=== PATIENT | male | born 1940 | race Caucasian/White ===

== ENCOUNTER 2020-02-24 05:49 | Outpatient (REF) | payer MEDICARE, SELFPAY | END 2020-02-24 05:50 | disposition home or self-care (01) | LOC: HO.RADIR 05:49 | PROVIDERS: Visit Provider Anesthesiology | DX: Z13.89 Encounter for screening for other disorder (principal) ==

== ENCOUNTER 2020-03-10 13:03 | Outpatient (REF) | payer MEDICARE, SELFPAY ==
--- NOTE | 2020-03-10 13:05 | XR_ITS ---
EXAMINATION: XR SHOULDER, LEFT CLINICAL INFORMATION: Follow-up fracture COMPARISON: Previous x-ray 02/02/2020 TECHNIQUE: Two views of the left shoulder. FINDINGS: There is a comminuted impacted fracture of the left humeral neck. Alignment appears unchanged. Fracture line is still seen. The glenohumeral joint is normal. There is mild arthritis at the acromioclavicular joint. XR/XR shoulder LT min 2V IMPRESSION: No change in the left humeral neck fracture.
== END 2020-03-10 13:04 | disposition home or self-care (01) ==
LOC: HO.HOSX 13:03
PROVIDERS: PCP Internal Medicine Endocrinology, Diabetes & Metabolism; Visit Provider Orthopaedic Surgery
DX: S42.209A Unspecified fracture of upper end of unspecified humerus, initial encounter for closed fracture (principal)
CPT/HCPCS: 73030

== ENCOUNTER → 2020-03-18 08:55 | Outpatient (BNVA) | payer MEDICARE, SELFPAY | PROVIDERS: PCP Internal Medicine Endocrinology, Diabetes & Metabolism; Referring Provider Internal Medicine Endocrinology, Diabetes & Metabolism; Visit Provider Orthopaedic Surgery | DX: S42.202D Unspecified fracture of upper end of left humerus, subsequent encounter for fracture with routine healing (principal) | CPT/HCPCS: 99212 ==

== ENCOUNTER → 2020-05-24 08:31 | Outpatient (BNVA) | payer MEDICARE, SELFPAY | PROVIDERS: PCP Internal Medicine Endocrinology, Diabetes & Metabolism; Visit Provider Orthopaedic Surgery | DX: S42.202A Unspecified fracture of upper end of left humerus, initial encounter for closed fracture (principal) | CPT/HCPCS: 99212 ==

== ENCOUNTER → 2021-02-17 13:23 | Outpatient (BNVA) | payer MEDICARE, OTHER, SELFPAY | PROVIDERS: Visit Provider Physician Assistant | DX: M70.62 Trochanteric bursitis, left hip (principal) | CPT/HCPCS: 20610; 99212; J1040 ==

== ENCOUNTER 2022-12-21 13:26 | Outpatient (AMB) | payer MEDICARE, MEDICAID, SELFPAY ==
--- NOTE | 2022-12-21 13:29 | A.OFFVIS_ITS ---
Intake Intake Visit Reasons: OV-Left Hip Pain Intake Note: Lonnie is an 82 year old male who presents today for a follow up of his left hip. He last had a bursa injection done on 02/17/2021 with Monalisa. He reports that the injection was helpful but he reports that his pain has increased. Allergies No Known Allergies [No Known Allergies*] Allergy (Verified 12/21/22 13:41) HPI OV-Left Hip Pain HPI Details Lonnie Morales is an 82-year-old male who presents today to the office for a follow-up of left hip pain. His last bursa injection was performed on 02/17/21, which provided significant relief. He has had trochanteric injections in the past from Dr. Oneil. He had a revision left hip arthroplasty with Dr. Oneil several years ago. He states that his hip pain increased recently after working out at home. He has been performing home exercises to keep himself physically active. His sister and grandmother both had a history of Alzheimer?s disease. [facility] Medical History History of colon cancer Mononeuropathy Post laminectomy syndrome Proximal humerus fracture Trochanteric bursitis Surgical History History of hernia surgery History of left hip replacement Social History Alcohol intake: current Alcohol intake frequency: holidays/special occasions only Current occupational status: retired Current occupation: right handed Physical Exam Const General: no acute distress, alert and awake Orientation/consciousness: patient oriented x3 HEENT Head: Yes normocephalic and Yes atraumatic Eyes EOM: EOMs intact bilaterally Resp Effort & Inspection: normal respiratory effort and able to speak in complete sentences Cardio Jugular venous distension: no JVD Skin General skin exam: turgor normal Rashes: no rashes Neuro General: patient oriented x3 Extrem Other: ttp over the greater trochanter on the right. no groin pain. walking comfortably Psych Appearance: grossly normal Affect: normal affect Attitude: cooperative Office Procedures Joint Injection/Drain Joint Injection/Drain Details: Injected 1 mL of Decadron and 3 mL 1% lidocaine and 3 mL of 0.25% Marcaine. Site was prepped using aseptic technique. Patient tolerated the procedure well. Primary Site: other (left greater trochanter) Approach Used: posterolateral Procedure: The patient tolerated the procedure well Coding - Large joint Procedure code (CPT) selection complete Results Reviewed Results Reviewed: 12/21/22 13:47 BUPivacaine MPF 0.25 % [Sensorcaine-MPF 0.25% 10 ML] 10 ml .ROUTE .STK-MED ONE Lidocaine HCl 2 % MPF [Xylocaine 2 % MPF] 5 ml .ROUTE .STK-MED ONE dexAMETHasone sod phosphate [Decadron] 4 mg .ROUTE .STK-MED ONE Assessment & Plan Assessment & Plan (1) Trochanteric bursitis, left hip: Code(s): M70.62 - Trochanteric bursitis, left hip Plan: S/p revision left hip arthroplasty for instability. Primary performed elsewhere. Has been well with chronic mild-moderate trochanteric bursitis. I injected his left bursa today. H may follow up as needed. Plan Scribed for Dr. Henrry Oneil by Mello Fulton, medical laboratory technicians, on 12/21/2022. I, Dr. Henrry Oneil, have personally reviewed and agree with the information entered by the scribe. Coding Level of Care Code Est Pt Level 3 (93023) Diagnoses Trochanteric bursitis, left hip M70.62 CPT Codes Coding - Large joint: 37879 - Large joint ([id number])
== END 2022-12-21 14:00 | disposition home or self-care (01) ==
PROVIDERS: Visit Provider Orthopaedic Surgery
DX: M70.62 Trochanteric bursitis, left hip (principal)
CPT/HCPCS: 20610; 99213

== ENCOUNTER → 2022-12-21 13:26 | Outpatient (BNVA) | payer MEDICARE, OTHER, SELFPAY | PROVIDERS: Visit Provider Orthopaedic Surgery | DX: M70.62 Trochanteric bursitis, left hip (principal) | CPT/HCPCS: 20610; 99212; J1100 ==

== ENCOUNTER 2023-02-19 13:02 | Outpatient (AMB) | payer MEDICARE, MEDICAID, SELFPAY ==
--- NOTE | 2023-03-05 11:18 | MHC.OFFVIS ---
Intake Vital Signs 03/05/23 11:20 Height 6 ft 1 in Weight 260 lb BMI 34.3 Intake Visit Reasons: EP, F/U Trochan bursitis, left hip inj 12/21/22 Intake Note: Lonnie is an 83 year old male who presents today for a follow up of his left hip pain, last injection was done 12/21/22. Patient reports that the lsat injection was only mildly helpful. He explains that he thinks that his lower back is causing his pain. He has history of lumber spine surgery. Allergies No Known Allergies [No Known Allergies*] Allergy (Verified 12/21/22 13:41) HPI EP, F/U Trochan bursitis, left hip inj 12/21/22 HPI Details Lonnie is an 83 year old man who returns with complaints of lower back pain He complains of pain primarily in his lower back, along with a painful lump that he feels in his back. He denies any groin pain but does have some lateral hip pain He says he has a hx of lumbar spine surgery in the past. He has been seen for trochanteric bursitis, and has a rTHA. [facility] Medical History History of colon cancer Mononeuropathy Post laminectomy syndrome Proximal humerus fracture Trochanteric bursitis Surgical History History of hernia surgery History of left hip replacement Social History Alcohol intake: current Alcohol intake frequency: holidays/special occasions only Current occupational status: retired Current occupation: right handed Review of Systems Const All systems reviewed & are unremarkable except as noted in HPI and below Physical Exam Vital Signs: BMI result Body Mass Index 34.3 Const General: no acute distress, alert and awake Orientation/consciousness: patient oriented x3 HEENT Head: Yes normocephalic and Yes atraumatic Eyes EOM: EOMs intact bilaterally Resp Effort & Inspection: normal respiratory effort and able to speak in complete sentences Cardio Jugular venous distension: no JVD Skin General skin exam: turgor normal Rashes: no rashes Neuro General: patient oriented x3 Extrem Other: TTP left greater trochanter No groin pain with hip ROM TTP lumosacral region Psych Appearance: grossly normal Affect: normal affect Attitude: cooperative Office Procedures Joint Injection/Drain Joint Injection/Drain Details: Injected 1 mL of Decadron and 3 mL 1% lidocaine and 3 mL of 0.25% Marcaine. Site was prepped using aseptic technique. Patient tolerated the procedure well. Primary Site: other (left greater trochanter) Approach Used: posterolateral Coding - Large joint Procedure code (CPT) selection complete Results Reviewed Results Reviewed: 03/05/23 11:30 BUPivacaine MPF 0.25 % [Sensorcaine-MPF 0.25% 10 ML] 10 ml .ROUTE .STK-MED ONE Lidocaine HCl 2 % MPF [Xylocaine 2 % MPF] 5 ml .ROUTE .STK-MED ONE dexAMETHasone sod phosphate [Decadron] 4 mg .ROUTE .STK-MED ONE Assessment & Plan Assessment & Plan (1) Low back pain: Code(s): M54.50 - Low back pain, unspecified Plan: This is an 83 year old man with low back pain, without numbness. He has pain with daily activity and feels limited in is ADLs. He has a hx of lumbar spine surgery several years ago. I discussed his diagnosis and treatment options. I referred him to Pain Management for assessment. He can follow up prn. (2) Trochanteric bursitis, left hip: Code(s): M70.62 - Trochanteric bursitis, left hip Plan: Injected his left trochanteric bursa today, which he tolerated well. Plan Scribed for Henrry Oneil MD by Dangelo Pandya, medical practice manager, on 03/05/23 at 11:35 AM, EST. Coding Level of Care Code Est Pt Level 4 (11812) Diagnoses Low back pain M54.50 Trochanteric bursitis, left hip M70.62 CPT Codes Coding - Large joint: 43976 - Large joint ([id number])
[2023-03-05 11:20] VITALS: BMI 34.3
== END 2023-03-05 11:50 | disposition home or self-care (01) ==
PROVIDERS: Visit Provider Orthopaedic Surgery
DX: M54.50 Low back pain, unspecified (principal); M70.62 Trochanteric bursitis, left hip
CPT/HCPCS: 20610; 99213

== ENCOUNTER → 2023-02-19 13:02 | Outpatient (BNVA) | payer MEDICARE, MEDICAID, SELFPAY | PROVIDERS: Visit Provider Orthopaedic Surgery | DX: M70.62 Trochanteric bursitis, left hip (principal); M54.50 Low back pain, unspecified | CPT/HCPCS: 20610; 99212; J1100 ==

== ENCOUNTER 2023-03-26 09:46 | Outpatient (AMB) | payer MEDICARE, MEDICAID, SELFPAY ==
[2023-03-26 09:49] VITALS: PULSE 72; RESP 12; O2SAT 99; BMI 33.0
--- NOTE | 2023-03-26 09:49 | MHC.OFFVIS ---
Intake Vital Signs 03/26/23 09:49 Height 6 ft 1 in Weight 250 lb BMI 33.0 Blood Pressure Location Lt brachial Position Sitting Respiration 12 Pulse 72 Pulse Source Pulse Oximeter Pulse Oximetry (%) 99 Oxygen Delivery Method Room Air Intake Visit Reasons: low back pain/trochanteric pain/lvm Allergies No Known Allergies [No Known Allergies*] Allergy (Verified 03/26/23 09:51) Medication List - Last Reconciled 03/26/23 by Batsheva Walls LPN furosemide 40 mg PO DAILY lorazepam 1 mg PO DAILY PRN spironolactone 50 mg PO DAILY HPI low back pain/trochanteric pain/lvm HPI Details 83-year-old male who presents today to the office for an evaluation of low back pain. The patient reports low back pain that has been worsening since last month. He rates his pain at 8?10 in intensity. He describes his pain as a shooting pain in the back. He uses a walker for ambulation. He has difficulty sleeping. He has tried physical therapy for a short period of time. He had a left hip arthroplasty several years ago. He had several bursa injections and trochanteric injections in the past with minimal to moderate benefit. He has a history of lumbar spine surgery in the past. He has a history of gout. [facility] Medical History (Updated 03/26/23 @ 10:10 by Maksim Del Rio MD) Congestive heart failure History of colon cancer Post laminectomy syndrome Mononeuropathy Trochanteric bursitis Proximal humerus fracture Surgical History History of left hip replacement History of hernia surgery Alcohol intake: current Alcohol intake frequency: holidays/special occasions only Current occupational status: retired Current occupation: right handed Review of Systems Const All systems reviewed & are unremarkable except as noted in HPI and below Physical Exam Vital Signs: Last Vital Signs Pulse 72 03/26/23 09:49 Resp 12 03/26/23 09:49 Pulse Ox 99 03/26/23 09:49 Oxygen Delivery Method Room Air 03/26/23 09:49 BMI result Body Mass Index 33.0 General: Appears afebrile. Alert and oriented. Mood and affect appropriate. Follows and participates in conversation appropriately. Respiratory effort is unlabored. Able to transition from sit to stand unassisted. Ambulates with bilaterally normal heel strike and toe off. Results Reviewed Results Reviewed: No imaging is available for review. Assessment & Plan Assessment & Plan (1) Low back pain: Code(s): M54.50 - Low back pain, unspecified (2) Right shoulder pain: Code(s): M25.511 - Pain in right shoulder (3) Post laminectomy syndrome: Code(s): M96.1 - Postlaminectomy syndrome, not elsewhere classified Plan 1. X-ray of the lumbar spine to assess status of hardware and rule out any obvious bony abnormalities. Depending on the results of the x-ray, can consider facet injections or neuromodulation. Pain on exam appears likely secondary to sacroiliac joint dysfunction on the left side. He is unable to participate in sacroiliac joint pain provocative maneuvers due to pain and disability. 2. Will obtain clearance to get his right shoulder x-ray results from [facility]. If his x-ray is indeed unremarkable, I agree with proceeding with physical therapy to regain lost function in the right shoulder and prevent developing adhesive capsulitis. 3. Recommended calling the primary care physician regarding the swelling in his lower extremities, especially on the left side to rule out ongoing thrombosis or cellulitis in combination with exacerbation of underlying heart failure. Scribed for Dr. Del Rio by Mello Fulton, medical affairs specialist, on 03/26/2023. I, Dr. Del Rio, have personally reviewed and agree with the information entered by the scribe. Orders: Orders XR lumbar spine 2-3V 03/26/23 M25.511 - Pain in right shoulder, M54.50 - Low back pain, unspecified, M96.1 - Postlaminectomy syndrome, not elsewhere classified Coding Level of Care Code New Pt Level 4 (93178) Diagnoses Low back pain M54.50 Right shoulder pain M25.511 Post laminectomy syndrome M96.1
== END 2023-03-26 11:21 | disposition home or self-care (01) ==
PROVIDERS: Referring Provider Orthopaedic Surgery; Visit Provider Internal Medicine
DX: M54.50 Low back pain, unspecified (principal); M25.511 Pain in right shoulder; M96.1 Postlaminectomy syndrome, not elsewhere classified
CPT/HCPCS: 99203

== ENCOUNTER → 2023-03-26 09:46 | Outpatient (BNVA) | payer MEDICARE, MEDICAID, SELFPAY | PROVIDERS: Referring Provider Orthopaedic Surgery; Visit Provider Internal Medicine | DX: M54.50 Low back pain, unspecified (principal); M25.511 Pain in right shoulder; M96.1 Postlaminectomy syndrome, not elsewhere classified; Z96.642 Presence of left artificial hip joint | CPT/HCPCS: 99202 ==

== ENCOUNTER 2023-04-05 09:44 | Outpatient (REF) | payer MEDICARE, MEDICAID, SELFPAY ==
--- NOTE | ~2023-04-05 | XR_ITS ---
EXAMINATION: XR LUMBOSACRAL SPINE CLINICAL INFORMATION: Lower back pain. COMPARISON: None. TECHNIQUE: AP and lateral views of the lumbar spine and lateral view of the lumbosacral junction. FINDINGS: There is bony demineralization. There is a mild lower lumbar levoscoliosis. There appear to have been prior spinal laminectomies at L3 and L4. Please correlate with the patient's past surgical history. There is moderate disc space narrowing at L1-L2. The remaining disc spaces are relatively well-maintained. No acute fracture or spondylolisthesis is seen. There is multi-level marked lumbar spondylosis and facet arthropathy. There has been a prior left hip arthroplasty. XR/XR lumbar spine 2-3V IMPRESSION: 1. There is moderate degenerative disc disease at L1-L2. 2. There is multi-level lumbar spondylosis and facet arthropathy. 3. There is a mild lower lumbar levoscoliosis.
== END 2023-04-05 09:45 | disposition home or self-care (01) ==
LOC: HO.XRAY 09:44
PROVIDERS: PCP Internal Medicine Endocrinology, Diabetes & Metabolism; Visit Provider Internal Medicine
DX: M54.50 Low back pain, unspecified (principal); M96.1 Postlaminectomy syndrome, not elsewhere classified
CPT/HCPCS: 72100

== ENCOUNTER → 2023-04-06 08:15 | Outpatient (BNVA) | payer MEDICARE, MEDICAID, SELFPAY | PROVIDERS: PCP Internal Medicine Endocrinology, Diabetes & Metabolism; Visit Provider Internal Medicine ==

== ENCOUNTER 2023-05-14 08:48 | Outpatient (AMB) | payer MEDICARE, MEDICAID, SELFPAY ==
--- NOTE | 2023-05-14 07:34 | MHC.OFFVIS ---
Intake Intake Visit Reasons: ov-left hip bursa injections Intake Note: Lonnie is an 83 year old right hand dominant male who presents today for a new problem visit with complaints of right shoulder pain. He took a fall about 3-4 weeks ago landing on the right shoulder. His pain is worse in the morning, denies numbness and tinlging. Allergies No Known Allergies [No Known Allergies*] Allergy (Verified 05/14/23 08:52) HPI ov-left hip bursa injections HPI Details Lonnie is an 83 year old man who presents with complaints of right shoulder pain S/P fall ~4 weeks ago. He says he landed on his right shoulder and he has had pain with use of his arm since. His pain is worse in the mornings. He is doing PT. He is able to sleep but uncomfortable at times, madelyn in the AM. He denies any numbness or tingling. [facility] Medical History Congestive heart failure History of colon cancer Post laminectomy syndrome Mononeuropathy Trochanteric bursitis Proximal humerus fracture Surgical History History of left hip replacement History of hernia surgery Social History Alcohol intake: current Alcohol intake frequency: holidays/special occasions only Current occupational status: retired Current occupation: right handed Review of Systems Const All systems reviewed & are unremarkable except as noted in HPI and below Physical Exam Const General: no acute distress, alert and awake Orientation/consciousness: patient oriented x3 HEENT Head: Yes normocephalic and Yes atraumatic Eyes EOM: EOMs intact bilaterally Resp Effort & Inspection: normal respiratory effort and able to speak in complete sentences Cardio Jugular venous distension: no JVD Skin General skin exam: turgor normal Rashes: no rashes Neuro General: patient oriented x3 Extrem Other: 45/80/120/L5 4-/5 empty can Psych Appearance: grossly normal Affect: normal affect Attitude: cooperative Office Procedures Joint Injection/Drain Joint Injection/Drain Details: Injected 1 mL of Decadron and 3 mL 1% lidocaine and 3 mL of 0.25% Marcaine. Site was prepped using aseptic technique. Patient tolerated the procedure well. Primary Site: right shoulder Approach Used: posterolateral Coding - Large joint Procedure code (CPT) selection complete Results Reviewed Results Reviewed: I personally reviewed relevant radiographs. Mild GH OA, otherwise unremarkable Assessment & Plan Assessment & Plan (1) Right shoulder pain: Code(s): M25.511 - Pain in right shoulder Plan: Injected right shoulder Likely RTC deficient Cont PT Injected right shoulder Plan Scribed for Henrry Oneil MD by Dangelo Pandya, medical secretary teacher, on 05/14/23 at 8:56 AM, EST. Orders: Orders XR shoulder RT min 2V Today M25.519 - Pain in unspecified shoulder Coding Level of Care Code Est Pt Level 3 (90372) Diagnoses Right shoulder pain M25.511 CPT Codes Coding - Large joint: 94974 - Large joint ([id number])
== END 2023-05-14 09:57 | disposition home or self-care (01) ==
PROVIDERS: PCP Internal Medicine Endocrinology, Diabetes & Metabolism; Visit Provider Orthopaedic Surgery
DX: M25.511 Pain in right shoulder (principal); W19.XXXA Unspecified fall, initial encounter
CPT/HCPCS: 20610; 99213

== ENCOUNTER 2023-05-14 08:48 | Outpatient (REF) | payer MEDICARE, MEDICAID, SELFPAY ==
--- NOTE | ~2023-05-14 | XR_ITS ---
EXAMINATION: XR SHOULDER, RIGHT CLINICAL INFORMATION: Right shoulder pain. COMPARISON: 02/06/2019. TECHNIQUE: Three views of the right shoulder. FINDINGS: The bones are diffusely demineralized. Mild degenerative changes in the acromioclavicular joint with joint space narrowing and hypertrophic change. Redemonstration of proximal right humeral cortical thickening. Dextroscoliosis of the partially imaged thoracic spine with degenerative changes. XR/XR shoulder RT min 2V IMPRESSION: 1. Mild degenerative changes in the acromioclavicular joint. 2. Redemonstration of proximal right humeral cortical thickening. Dextroscoliosis of the partially imaged thoracic spine with degenerative changes.
== END 2023-05-14 08:49 | disposition home or self-care (01) ==
LOC: HO.HOSX 08:48
PROVIDERS: PCP Internal Medicine Endocrinology, Diabetes & Metabolism; Visit Provider Orthopaedic Surgery
DX: M25.511 Pain in right shoulder (principal); Z91.81 History of falling
CPT/HCPCS: 20610; 73030; 99212; J0665; J1100

== ENCOUNTER 2023-12-13 10:43 | Outpatient (AMB) | payer MEDICARE, MEDICAID, SELFPAY ==
--- NOTE | 2023-12-13 10:45 | MHC.OFFVIS ---
Vital Signs 12/13/23 10:47 Height 6 ft 1 in Weight 250 lb BMI 33.0 Intake Visit Reasons: OV- LT hip pain Intake Note: Lonnie is an 83 year old male who presents today for a follow up of his left hip bursitis, last injection for bursitis was done in February of last year . Allergies No Known Allergies [No Known Allergies*] Allergy (Verified 05/14/23 08:52) HPI HPI OV- LT hip pain: Details: Lonnie is an 83 year old male who presents today for a follow up of his left hip bursitis, last injection for bursitis was done in February of last year . Is bilateral lateral hip pain is improved but he has lots of low back pain. He denies radiations. He is pretty adamant that he does not want to see a spine surgeon. He does not think he needs repeat injections in his greater trochanter. [facility] Medical History Congestive heart failure History of colon cancer Post laminectomy syndrome Mononeuropathy Trochanteric bursitis Proximal humerus fracture Surgical History History of left hip replacement History of hernia surgery Social History (Reviewed 05/14/23 @ 08:52 by Heather Stanton [facility]) Alcohol intake: current Alcohol intake frequency: holidays/special occasions only Current occupational status: retired Current occupation: right handed Physical Exam Vital Signs: BMI result Body Mass Index 33.0 Extrem Other: Lonnie walks with a cane. He has minimal to no tenderness to palpation over the greater trochanter bilaterally. Assessment & Plan Assessment & Plan (1) Sacroiliac joint dysfunction: Code(s): M53.3 - Sacrococcygeal disorders, not elsewhere classified Category: Medical Plan: Pain management referral (2) Low back pain: Code(s): M54.50 - Low back pain, unspecified Category: Medical Plan: PT referral Coding Level of Care Code Est Pt Level 4 (01320) Diagnoses Sacroiliac joint dysfunction M53.3 Low back pain M54.50
[2023-12-13 10:47] VITALS: BMI 33.0
== END 2023-12-13 11:06 | disposition home or self-care (01) ==
PROVIDERS: PCP Internal Medicine Endocrinology, Diabetes & Metabolism; Visit Provider Orthopaedic Surgery
DX: M53.3 Sacrococcygeal disorders, not elsewhere classified (principal); M54.50 Low back pain, unspecified
CPT/HCPCS: 99214

== ENCOUNTER → 2023-12-13 10:43 | Outpatient (BNVA) | payer MEDICARE, MEDICAID, SELFPAY | PROVIDERS: PCP Internal Medicine Endocrinology, Diabetes & Metabolism; Visit Provider Orthopaedic Surgery | DX: M54.50 Low back pain, unspecified (principal); M53.3 Sacrococcygeal disorders, not elsewhere classified | CPT/HCPCS: 99212 ==

== ENCOUNTER 2024-02-26 08:56 | Outpatient (AMB) | payer MEDICARE, MEDICAID, SELFPAY ==
--- NOTE | 2024-02-26 09:03 | A.OFFVIS_ITS ---
Vital Signs 02/26/24 09:08 Height 6 ft 1 in Weight 250 lb BMI 33.0 Intake Visit Reasons: FC-right distal radius, ulnar styloid fx Intake Note: Lonnie is an 84 yo right hand dominant male who presents today to evaluate a fracture of the right distal radius and right ulnar styloid, DOI 02/24/24. He was evaluated at [facility], only imaging available for today's visit. Patient reports he was going up the stairs at home when he fell, landing on the right side of his body. Patient describes pain as 5 on the pain scale, but it worsens at night. He was prescribed Oxycodone 5mg at the ED but he does not want to take it. Patient denies numbness and tingling. Denies finger locking. Patient reports normal sensitivity at the fingertips. Denies any prior injuries or surgeries to the right hand. Allergies No Known Allergies [No Known Allergies*] Allergy (Verified 02/26/24 09:17) HPI HPI FC-right distal radius, ulnar styloid fx: Details: Lonnie is an 84 year old right hand dominant man who presents for a right wrist fracture, S/P fall, DOI: 02/23/24. He was seen at [facility] ED and was placed in a sugar-tong splint. He is seen today was . He presents today with complaints of pain in his wrist, which is worse at night, along with swelling. He says he has been wearing a sling and trying to keep his wrist elevated when at rest. He also is concerned that he has some bleeding, swelling, and blistering that was visible today when his dressings were removed. He denies having any wound or infection prior to his injury. He denies any numbness, tingling, locking, or catching. He has a Hx of CHF and is taking Lasix & Spironolactone [facility] Medical History (Updated 02/26/24 @ 09:52 by Dangelo Pandya) Congestive heart failure History of colon cancer Post laminectomy syndrome Mononeuropathy Trochanteric bursitis Proximal humerus fracture Surgical History History of left hip replacement History of hernia surgery Social History Alcohol intake: current Alcohol intake frequency: holidays/special occasions only Current occupational status: retired Current occupation: right handed Review of Systems Const All systems reviewed & are unremarkable except as noted in HPI and below Physical Exam Vital Signs: BMI result Body Mass Index 33.0 Const General: cooperative, healthy appearing and no acute distress Orientation/consciousness: patient oriented x3 HEENT Head: Yes normocephalic and Yes atraumatic Eyes EOM: EOMs intact bilaterally Resp Effort & Inspection: normal respiratory effort and able to speak in complete sentences Cardio Jugular venous distension: no JVD Skin General skin exam: turgor normal Rashes: no rashes Neuro General: patient oriented x3 Extrem Other: Evaluation of Right Upper Extremity: The patient is alert, oriented, and in no acute distress Sensation intact today to all digits. He has significant swelling of his right hand and all of the fingers, and very limited finger ROM due to swelling Because of the swelling he also has limited range of motion with only weak flexion and extension of the fingers. Skin: Cluster of fracture blisters on volar distal forearm Small superficial wound to the volar aspect of the mid-forearm These appear to be fracture blisters, not an open fracture. Patient and also report that they were not present when he was 1st seen in the ED after his injury. General: Most tender over the Distal radius No tenderness about the elbow or with proximal forearm squeeze No tenderness over the distal ulna Radiographs: 3 views of the right wrist were taken and viewed by me today in clinic. They show a right comminuted distal radius fracture, intra-articular with a large radial styloid piece & lunar facet piece. The lunate facet fragment appears slightly depressed. There is also an ulnar styloid and nondisplaced ulnar head fracture. Psych Appearance: grossly normal Affect: normal affect Attitude: cooperative Assessment & Plan Assessment & Plan (1) Fracture of right distal radius: Code(s): S52.501A - Unspecified fracture of the lower end of right radius, initial encounter for closed fracture Category: Medical (2) Fracture of right ulnar styloid: Code(s): S52.611A - Displaced fracture of right ulna styloid process, initial encounter for closed fracture Category: Medical (3) Swelling of right hand: Code(s): M79.89 - Other specified soft tissue disorders Category: Medical (4) Congestive heart failure: Code(s): I50.9 - Heart failure, unspecified Category: Medical Plan Assessment & Plan: 1. Right distal radius fracture, comminuted & intra-articular S/P fall, DOI: 02/23/24 2. Right ulnar styloid fracture, S/P fall, DOI: 02/23/24 3. Right wrist fracture blisters, secondary to swelling I educated him about these conditions I discussed operative and non-operative treatment options Because of the amount of swelling I do not feel that surgery is an option at this time. We will try to manage this non-operatively, however I explained that if his fracture moves at all he will need surgery, and he expressed understanding. He was placed on a 10 day course of Augmentin out of an abundance of caution bec ause of his fracture blisters.. I explained the importance of elevation at all times possible, to reduce his swelling and improve his blistering. We cleaned up his fracture blisters and placed a fresh dressing. He was then placed in a fiberglass volar wrist splint extending to the proximal forearm. I discussed activity modification, he is to lift nothing with his right hand He should work on gentle finger ROM exercises at home He was placed in a short volar wrist splint, which allows for elbow and finger ROM He will follow up on Sunday with LUCINDA Escobar for a wound check, no X-rays He will follow up next week with me, with X-rays, 3V attn R wrist. Depending on imaging he may require surgery on 03/06/24. Options to be considered at that time would be ORIF versus external fixator versus treating the fracture non operatively this 84-year-old man. Scribed for Cheryl Cagle MD by Dangelo Pandya, biomedical photographer, on 02/26/24 at 9:25 AM, EST. Orders: Orders XR wrist RT min 3V Today M25.531 - Pain in right wrist Medications: New amoxicillin-pot clavulanate 875-125 mg 1 tab PO Q12H 14 tabs 0RF Coding Level of Care Code New Pt Level 4 (22036) Diagnoses Fracture of right distal radius S52.501A Fracture of right ulnar styloid S52.611A Swelling of right hand M79.89 Congestive heart failure I50.9
[2024-02-26 09:08] VITALS: BMI 33.0
== END 2024-02-26 10:27 | disposition home or self-care (01) ==
PROVIDERS: PCP Internal Medicine Endocrinology, Diabetes & Metabolism; Visit Provider Orthopaedic Surgery
DX: S52.501A Unspecified fracture of the lower end of right radius, initial encounter for closed fracture (principal); S52.611A Displaced fracture of right ulna styloid process, initial encounter for closed fracture; M79.89 Other specified soft tissue disorders; I50.9 Heart failure, unspecified
CPT/HCPCS: 25600; 99204

== ENCOUNTER 2024-02-26 08:56 | Outpatient (REF) | payer MEDICARE, MEDICAID, SELFPAY | END 2024-02-26 08:57 | disposition home or self-care (01) | LOC: HO.HOSX 08:56 | PROVIDERS: PCP Internal Medicine Endocrinology, Diabetes & Metabolism; Visit Provider Orthopaedic Surgery | DX: S52.501A Unspecified fracture of the lower end of right radius, initial encounter for closed fracture (principal); S52.611A Displaced fracture of right ulna styloid process, initial encounter for closed fracture; M79.89 Other specified soft tissue disorders; I50.9 Heart failure, unspecified; W10.9XXA Fall (on) (from) unspecified stairs and steps, initial encounter; Y93.9 Activity, unspecified; Y92.9 Unspecified place or not applicable; Y99.9 Unspecified external cause status | CPT/HCPCS: 73110; 99202 ==

== ENCOUNTER 2024-02-29 08:41 | Outpatient (AMB) | payer MEDICARE, MEDICAID, SELFPAY ==
--- NOTE | 2024-02-29 08:46 | A.OFFVIS_ITS ---
Intake Visit Reasons: OV-RT distal radius, ulnar styloid fx-wound check Intake Note: Lonnie is a 84 year old male that presents in the office today for a wound check. Patient is taking antibiotics, he has been experiencing some numbness in his fingers but he is able to move them now. Allergies No Known Allergies [No Known Allergies*] Allergy (Verified 02/29/24 08:47) HPI HPI OV-RT distal radius, ulnar styloid fx-wound check: Details: Patient is an 84-year-old male who presents for wound check of fracture blister status post fracture of right distal radius and ulnar styloid. Today, the patient reports that his pain and swelling have improved since previous evaluation, although he has noticed increased soreness since removal from the splint in the office today. The patient states that he has improved motion of the digits of his right hand, but his right hand is still very significantly swollen, and he still reports numbness in the right hand. Patient states that he has been elevating his hand fairly consistently, but struggles to do so at night while sleeping. No other acute complaints or concerns at this time. [facility] Medical History (Updated 02/26/24 @ 09:52 by Dangelo Pandya) Congestive heart failure History of colon cancer Post laminectomy syndrome Mononeuropathy Trochanteric bursitis Proximal humerus fracture Surgical History History of left hip replacement History of hernia surgery Social History Alcohol intake: current Alcohol intake frequency: holidays/special occasions only Current occupational status: retired Current occupation: right handed Review of Systems Const All systems reviewed & are unremarkable except as noted in HPI and below Physical Exam Const General: cooperative, healthy appearing and no acute distress Orientation/consciousness: patient oriented x3 HEENT Head: Yes normocephalic and Yes atraumatic Eyes EOM: EOMs intact bilaterally Resp Effort & Inspection: normal respiratory effort and able to speak in complete sentences Cardio Jugular venous distension: no JVD Skin General skin exam: turgor normal Rashes: no rashes Neuro General: patient oriented x3 Extrem Other: Evaluation of Right Upper Extremity: The patient is alert, oriented, and in no acute distress Sensation intact today to all digits. He has significant swelling of his right hand and all of the fingers, and limited finger ROM due to swelling, but this has improved since last visit Because of the swelling he also has limited range of motion with only weak flexion and extension of the fingers. Skin: Cluster of fracture blisters on volar distal forearm, with some having ruptured since last visit Small superficial wound to the volar aspect of the mid-forearm These appear to be fracture blisters, not an open fracture. Patient and also report that they were not present when he was 1st seen in the ED after his injury. General: Most tender over the Distal radius No tenderness about the elbow or with proximal forearm squeeze No tenderness over the distal ulna Radiographs: 3 views of the right wrist were taken and viewed by me today in clinic. They show a right comminuted distal radius fracture, intra-articular with a large radial styloid piece & lunar facet piece. The lunate facet fragment appears slightly depressed. There is also an ulnar styloid and nondisplaced ulnar head fracture. Psych Appearance: grossly normal Affect: normal affect Attitude: cooperative Assessment & Plan Assessment & Plan (1) Swelling of right hand: Code(s): M79.89 - Other specified soft tissue disorders Category: Medical (2) Fracture of right distal radius: Code(s): S52.501A - Unspecified fracture of the lower end of right radius, initial encounter for closed fracture Category: Medical (3) Fracture of right ulnar styloid: Code(s): S52.611A - Displaced fracture of right ulna styloid process, initial encounter for closed fracture Category: Medical Plan 1. Right distal radius fracture 2. Right ulnar styloid fracture Date of injury 02/23/24 Patient is educated that while his swelling and range of motion have improved since last visit, he should continue to elevate very consistently, including at night, in order to get his swelling down enough to the point where surgery would become an option next week. Patient has splint is replaced in the office today, with a small nonstick dressing applied to the area where the fracture blisters have ruptured Patient is advised that he should continue to take his antibiotics to prevent any potential infection Patient is educated he should continue to work on range of motion of his fingers Patient will be evaluated by Dr. Cagle next Sunday for repeat evaluation and discussion of potential surgical intervention if indicated at that time, sooner with any acute concerns Patient understands this and is amenable to this Coding Level of Care Code Est Pt Level 3 (64786) Diagnoses Swelling of right hand M79.89 Fracture of right distal radius S52.501A Fracture of right ulnar styloid S52.611A
== END 2024-02-29 09:40 | disposition home or self-care (01) ==
PROVIDERS: PCP Internal Medicine Endocrinology, Diabetes & Metabolism
DX: S52.501A Unspecified fracture of the lower end of right radius, initial encounter for closed fracture (principal); S52.611A Displaced fracture of right ulna styloid process, initial encounter for closed fracture; M79.89 Other specified soft tissue disorders
CPT/HCPCS: 99213

== ENCOUNTER → 2024-02-29 08:41 | Outpatient (BNVA) | payer MEDICARE, MEDICAID, SELFPAY | PROVIDERS: PCP Internal Medicine Endocrinology, Diabetes & Metabolism | DX: S52.501A Unspecified fracture of the lower end of right radius, initial encounter for closed fracture (principal); S52.611A Displaced fracture of right ulna styloid process, initial encounter for closed fracture; X58.XXXA Exposure to other specified factors, initial encounter; Y93.9 Activity, unspecified; Y92.9 Unspecified place or not applicable; Y99.9 Unspecified external cause status; M79.89 Other specified soft tissue disorders | CPT/HCPCS: 99212 ==

== ENCOUNTER 2024-03-04 15:29 | Outpatient (AMB) | payer MEDICARE, MEDICAID, SELFPAY ==
--- NOTE | 2024-03-04 15:42 | MHC.OFFVIS ---
Vital Signs 03/04/24 15:49 Height 6 ft 1 in Weight 250 lb BMI 33.0 Intake Visit Reasons: OV-right distal radius, ulnar styloid-w/xray 3V Intake Note: Lonnie is an 84 yo right hand dominant male who presents today a follow up evaluation of a fracture of the right distal radius and right ulnar styloid, DOI 02/24/24. Patient reports he coontinues to take his abx. Allergies No Known Allergies [No Known Allergies*] Allergy (Verified 02/29/24 08:47) HPI HPI OV-right distal radius, ulnar styloid-w/xray 3V: Details: Lonnie is an 84 year old right hand dominant man who returns for his right distal radius & ulnar styloid fractures, S/P fall, DOI: 02/23/24. He is seen again today with his . He presents today with complaints of pain in his wrist, which is worse at night, but he says his pain has been improving. He says his swelling has improved with elevation, which he is happy about. He was last seen 1 week ago and noted to have significant swelling and fracture blisters on the volar aspect of his wrist. He denies any numbness, tingling He has a Hx of CHF and is taking Lasix & Spironolactone [facility] Medical History (Updated 02/26/24 @ 09:52 by Dangelo Pandya) Congestive heart failure History of colon cancer Post laminectomy syndrome Mononeuropathy Trochanteric bursitis Proximal humerus fracture Surgical History History of left hip replacement History of hernia surgery Social History Alcohol intake: current Alcohol intake frequency: holidays/special occasions only Current occupational status: retired Current occupation: right handed Physical Exam Vital Signs: BMI result Body Mass Index 33.0 Extrem Other: Evaluation of Right Upper Extremity: The patient is alert, oriented, and in no acute distress Neuro: Sensation intact today to all digits. ROM: Skin: He still has significant swelling of his hand & wrist Cluster of fracture blisters on volar distal forearm, these appear to be healing Small superficial wound to the volar aspect of the mid-forearm also healing These appear to be fracture blisters, not an open fracture. No evidence of infection The swelling is really from his elbow extending down all the way to the fingers. It is somewhat better than last week, but he still has significant swelling in the fingers, and stiffness from not moving them. We worked on active and passive ROM exercises for more than 15 minutes today in clinic Before leaving clinic he could actively bring his fingers into not quite full extension, but much better than before clinic. Before leaving clinic he could also bring his fingers actively into some flexion, with his fingertips perhaps 3-4 cm from his palm, which again is an improvement compared with before clinic. I explained to him that I think he should be doing these exercises for 5-10 minutes every hour while awake and whenever commercials come on TV. General: Most tender over the Distal radius No tenderness about the elbow or with proximal forearm squeeze No tenderness over the distal ulna Radiographs: 3 views of the right wrist were taken and viewed by me today in clinic. They show a right comminuted distal radius fracture, intra-articular with a large radial styloid piece & lunar facet piece. The lunate facet fragment appears slightly depressed. There is also an ulnar styloid and nondisplaced ulnar head fracture. He is at neutral on the lateral view, and overall unchanged from prior. Office Procedures AMB Fracture Care Details: Fracture care right distal radius fracture 20059 Manual therapy for more than 15 minutes in clinic 73089 Fracture Billing Code: Fracture Billing Code Assessment & Plan Assessment & Plan (1) Fracture of right distal radius: Code(s): S52.501A - Unspecified fracture of the lower end of right radius, initial encounter for closed fracture Category: Medical (2) Fracture of right ulnar styloid: Code(s): S52.611A - Displaced fracture of right ulna styloid process, initial encounter for closed fracture Category: Medical (3) Swelling of right hand: Code(s): M79.89 - Other specified soft tissue disorders Category: Medical (4) Congestive heart failure: Code(s): I50.9 - Heart failure, unspecified Category: Medical Plan Assessment & Plan: 1. Right distal radius fracture, comminuted & intra-articular S/P fall, DOI: 02/23/24 2. Right ulnar styloid fracture, S/P fall, DOI: 02/23/24 3. Right wrist volar fracture blisters, secondary to swelling These are drying up, and he has had some improvement in his swelling. I believe his congestive heart failure is likely also making it harder for him to improve his swelling. I talked to him again about the improvement of keeping the hand elevated, and the importance of active and passive finger range of motion to help improve his swelling. Again we worked on active and passive range of motion exercises for more than 15 minutes today in clinic. Please see physical exam for improvement in range of motion. I educated him about these conditions I discussed operative and non-operative treatment options He is 84, with some congestive heart failure and significant swelling including fracture blisters about the right wrist. I am recommending that we treat this non operatively. His swelling has improved some overall, which he is happy about, but he still has significant swelling particularly in the fingers. He was fitted for a fiberglass volar wrist splint which allows for finger ROM, to be worn like a cast except for showering, for the next 4 weeks. We had tried a Velcro wrist splint, but he was still too swollen to place it. I also think the swelling is going to make a cast more problematic. He should have finished his PO Augmentin I explained the importance of elevation at all times possible, to reduce his swelling and improve his blistering. I discussed activity modification, he is to lift nothing with his right hand He should work on gentle finger ROM exercises at home for at least 5-10 minutes every hour while awake I ordered OT hand therapy to work on finger ROM, no wrist range of motion yet. He will follow up in 3 weeks for a fracture and ROM check, with X-rays, 3V attn R wrist. Scribed for Cheryl Cagle MD by Dangelo Pandya, certified medical asst, on 03/04/24 at 4:00 PM, EST. Orders: Orders XR wrist RT min 3V Today M25.531 - Pain in right wrist OT Evaluation and Treatment Today I50.9 - Heart failure, unspecified, M79.89 - Other specified soft tissue disorders, S52.501A - Unspecified fracture of the lower end of right radius, initial encounter for closed fracture, S52.611A - Displaced fracture of right ulna styloid process, initial encounter for closed fracture Coding Level of Care Code Est Pt Level 4 (00879) Diagnoses Fracture of right distal radius S52.501A Fracture of right ulnar styloid S52.611A Swelling of right hand M79.89 Congestive heart failure I50.9 CPT Codes Fracture Care - Fracture Billing Code: Fracture Billing Code ([id number])
[2024-03-04 15:49] VITALS: BMI 33.0
== END 2024-03-04 18:11 | disposition home or self-care (01) ==
LOC: HO.HOS 15:30
PROVIDERS: PCP Internal Medicine Endocrinology, Diabetes & Metabolism; Visit Provider Orthopaedic Surgery
DX: S52.501A Unspecified fracture of the lower end of right radius, initial encounter for closed fracture (principal); S52.611A Displaced fracture of right ulna styloid process, initial encounter for closed fracture; M79.89 Other specified soft tissue disorders; I50.9 Heart failure, unspecified
CPT/HCPCS: 29125; 99024; 99214

== ENCOUNTER 2024-03-04 15:43 | Outpatient (REF) | payer MEDICARE, MEDICAID, SELFPAY | END 2024-03-04 15:44 | disposition home or self-care (01) | LOC: HO.HOSX 15:43 | PROVIDERS: Visit Provider Orthopaedic Surgery | DX: M25.531 Pain in right wrist (principal); S52.501A Unspecified fracture of the lower end of right radius, initial encounter for closed fracture; S52.611A Displaced fracture of right ulna styloid process, initial encounter for closed fracture; M79.89 Other specified soft tissue disorders; I50.9 Heart failure, unspecified | CPT/HCPCS: 73110; 97140; 99212 ==

== ENCOUNTER 2024-03-06 14:19 | Outpatient (AMB) | payer MEDICARE, MEDICAID, SELFPAY ==
--- NOTE | 2024-03-06 14:45 | MHC.OFFVIS ---
Intake Visit Reasons: RT distal radius, ulnar styloid fx-splint change Intake Note: Patient presents to the office today for splint change. Reports the splint feels uncomfortable. A thermal molded vs. velcro wrist splint was discussed at the last visit. Allergies No Known Allergies [No Known Allergies*] Allergy (Verified 02/29/24 08:47) HPI HPI RT distal radius, ulnar styloid fx-splint change: Details: 84-year-old right hand dominant male who presents in the office today for a follow-up evaluation of a fracture of the right distal radius and right ulnar styloid that occurred on 02/24/2024. The patient was seen by Cheryl Cagle PA-C on 03/04/[address] in a Velcro wrist splint but failed to due to edema in his right wrist. Therefore, he was fitted in a fiberglass volar wrist splint allowing for finger ROM, and a referral was placed for OT hand therapy. He was advised to finish the Augmentin course. Activity modification and weight restriction were discussed at that encounter. While in the office today, the patient presents today for a splint change. He reports discomfort in the splint. We had discussed a thermal molded versus a velcro wrist splint in the last visit. He has a significant medical history of congestive heart failure. [facility] Medical History (Updated 02/26/24 @ 09:52 by Dangelo Pandya) Congestive heart failure History of colon cancer Post laminectomy syndrome Mononeuropathy Trochanteric bursitis Proximal humerus fracture Surgical History (Reviewed 05/14/23 @ 08:52 by Heather Stanton [facility] [address]) History of left hip replacement History of hernia surgery Social History Alcohol intake: current Alcohol intake frequency: holidays/special occasions only Current occupational status: retired Current occupation: right handed Review of Systems Const All systems reviewed & are unremarkable except as noted in HPI and below Physical Exam Const General: cooperative, healthy appearing and no acute distress Resp Effort & Inspection: normal respiratory effort and able to speak in complete sentences Cardio Rate: regular rate Peripheral pulses: Peripheral pulses 2+ throughout GI Palpation (GI): Soft to palpation Skin Lesions: no lesions Rashes: no rashes Extrem Other: Significant swelling of his hand & wrist Cluster of fracture blisters on volar distal forearm, these appear to be healing Small superficial wound to the volar aspect of the mid-forearm also healing These appear to be fracture blisters, not an open fracture. No evidence of infection Assessment & Plan Assessment & Plan (1) Fracture of right distal radius: Code(s): S52.501A - Unspecified fracture of the lower end of right radius, initial encounter for closed fracture Category: Medical (2) Fracture of right ulnar styloid: Code(s): S52.611A - Displaced fracture of right ulna styloid process, initial encounter for closed fracture Category: Medical (3) Swelling of right hand: Code(s): M79.89 - Other specified soft tissue disorders Category: Medical (4) Congestive heart failure: Code(s): I50.9 - Heart failure, unspecified Category: Medical Plan Mr. Morales is a 84-year-old right hand dominant male who presents in the office today for a follow-up evaluation of a fracture of the right distal radius and right ulnar styloid that occurred on 02/24/2024. The patient was seen by Cheryl Cagle PA-C on 03/04/[address] to [address] in a Velcro wrist splint but failed to due to edema in his right wrist. Therefore, he was fitted in a fiberglass volar wrist splint allowing for finger ROM, and a referral was placed for OT hand therapy. He was advised to finish the Augmentin course. Activity modification and weight restriction were discussed at that encounter. While in the office today, the patient presents today for a splint change. He reports discomfort in the splint. We had discussed a thermal molded versus a velcro wrist splint in the last visit. He has a significant medical history of congestive heart failure. The patient was placed in a thermal molded wrist brace, off the shelf. Follow-up will be at his normally scheduled follow-up appointment, or sooner if needed. Patient Instructions: Scribed by Nayeli Bronson, bacteriologist medical, for Stephenie Mcmahan PA-C on 03/06/24 at 3:00 pm EST. Coding Level of Care Code Global (32341) Diagnoses Fracture of right distal radius S52.501A Fracture of right ulnar styloid S52.611A Swelling of right hand M79.89 Congestive heart failure I50.9
== END 2024-03-06 15:01 | disposition home or self-care (01) ==
LOC: HO.HOS 14:19
PROVIDERS: PCP Internal Medicine Endocrinology, Diabetes & Metabolism; Visit Provider Physician Assistant
DX: S52.501A Unspecified fracture of the lower end of right radius, initial encounter for closed fracture (principal); S52.611A Displaced fracture of right ulna styloid process, initial encounter for closed fracture; M79.89 Other specified soft tissue disorders; I50.9 Heart failure, unspecified
CPT/HCPCS: 25600; 99024

== ENCOUNTER → 2024-03-06 14:19 | Outpatient (BNVA) | payer MEDICARE, MEDICAID, SELFPAY | PROVIDERS: PCP Internal Medicine Endocrinology, Diabetes & Metabolism; Visit Provider Physician Assistant | DX: S52.501D Unspecified fracture of the lower end of right radius, subsequent encounter for closed fracture with routine healing (principal); S52.611D Displaced fracture of right ulna styloid process, subsequent encounter for closed fracture with routine healing; M79.89 Other specified soft tissue disorders; I50.9 Heart failure, unspecified | CPT/HCPCS: 25600; 99212 ==

== ENCOUNTER 2024-03-25 10:42 | Outpatient (REF) | payer MEDICARE, MEDICAID, SELFPAY | END 2024-03-25 10:43 | disposition home or self-care (01) | LOC: HO.HOSX 10:42 | PROVIDERS: Visit Provider Orthopaedic Surgery | DX: M25.531 Pain in right wrist (principal); S52.501A Unspecified fracture of the lower end of right radius, initial encounter for closed fracture; S52.611A Displaced fracture of right ulna styloid process, initial encounter for closed fracture; M79.89 Other specified soft tissue disorders; I50.9 Heart failure, unspecified | CPT/HCPCS: 73110; 99212 ==

== ENCOUNTER 2024-03-25 11:25 | Outpatient (AMB) | payer MEDICARE, MEDICAID, SELFPAY ==
[2024-03-25 11:38] VITALS: BMI 33.0
--- NOTE | 2024-03-25 11:38 | A.OFFVIS_ITS ---
Vital Signs 03/25/24 11:38 Height 6 ft 1 in Weight 250 lb BMI 33.0 Intake Visit Reasons: OV-RT distal radius, ulnar styloid fx wound check Intake Note: Lonnie is an 84 yo right hand dominant male who presents today a follow up evaluation of a fracture of the right distal radius and right ulnar styloid, DOI 02/24/24. Allergies No Known Allergies [No Known Allergies*] Allergy (Verified 03/25/24 11:38) HPI HPI OV-RT distal radius, ulnar styloid fx wound check: Details: Lonnie is an 84 year old right hand dominant man who returns for his right distal radius & ulnar styloid fractures, S/P fall, DOI: 02/23/24. He is seen again today with his . He was seen in the office on 03/06/24 by LUCINDA Casiano for a splint change. He returns today saying he is doing better and his swelling has been improving, which he is happy about. He has been working on his ROM at home and has started OT hand therapy, which he says is helpful. He denies any numbness or tingling He has a Hx of CHF and is taking Lasix & Spironolactone [facility] Medical History (Updated 02/26/24 @ 09:52 by Dangelo Pandya) Congestive heart failure History of colon cancer Post laminectomy syndrome Mononeuropathy Trochanteric bursitis Proximal humerus fracture Surgical History (Reviewed 05/14/23 @ 08:52 by Heather Stanton [facility]) History of left hip replacement History of hernia surgery Social History (Reviewed 05/14/23 @ 08:52 by Heather Stanton [facility]) Alcohol intake: current Alcohol intake frequency: holidays/special occasions only Current occupational status: retired Current occupation: right handed Physical Exam Vital Signs: BMI result Body Mass Index 33.0 Extrem Other: Evaluation of Right Upper Extremity: The patient is alert, oriented, and in no acute distress Neuro: Sensation intact today to all digits. ROM: He still has significant swelling in his fingers. Before leaving clinic he could bring his fingertips ~4-5cm from his palm and his fingers can be brought ~8-10cm from his palm in extension Skin: His wrist swelling has improved His fracture blisters have healed. General: Fracture site is non-tender No tenderness over the distal ulna Radiographs: 3 views of the right wrist were taken and viewed by me today in clinic. They show a right comminuted distal radius fracture, intra-articular with a large radial styloid piece & lunar facet piece. The lunate facet fragment appears slightly depressed. There is also an ulnar styloid and nondisplaced ulnar head fracture. He has ~3 degrees of dorsal tilt on the lateral view, with overall satisfactory fracture alignment with some evidence of interval bony healing Assessment & Plan Assessment & Plan (1) Fracture of right distal radius: Code(s): S52.501A - Unspecified fracture of the lower end of right radius, initial encounter for closed fracture Category: Medical (2) Fracture of right ulnar styloid: Code(s): S52.611A - Displaced fracture of right ulna styloid process, initial encounter for closed fracture Category: Medical (3) Swelling of right hand: Code(s): M79.89 - Other specified soft tissue disorders Category: Medical (4) Congestive heart failure: Code(s): I50.9 - Heart failure, unspecified Category: Medical Plan Assessment & Plan: 1. Right distal radius fracture, comminuted & intra-articular S/P fall, DOI: 02/23/24 2. Right ulnar styloid fracture, S/P fall, DOI: 02/23/24 3. Right wrist volar fracture blisters, secondary to swelling These are drying up, and he has had good improvement in his swelling. I believe his congestive heart failure is likely also making it harder for him to improve his swelling. I talked to him again about the improvement of keeping the hand elevated, and the importance of active and passive finger range of motion to help improve his swelling. I educated him about these conditions We have managed this fracture non operatively in a cast. His swelling has improved overall, which he is happy about, but is still present He was placed in a velcro wrist splint which allows for finger ROM, to be worn like a cast except for showering, for the next 4 weeks. I discussed activity modification, he is to lift nothing heavier than a cellphone for the next 4 weeks I emphasized the importance of working on ROM exercises at home, out of his splint He will continue to work on ROM with OT hand therapy He will follow up in 4-5 weeks for a ROM check, no X-rays unless he has a new injury Scribed for Cheryl Cagle MD by Dangelo Pandya, medical billing coordinator, on 03/25/24 at 11:55 AM, EST. Orders: Orders XR wrist RT min 3V Today M25.531 - Pain in right wrist Coding Level of Care Code Global (29985) Diagnoses Fracture of right distal radius S52.501A Fracture of right ulnar styloid S52.611A Swelling of right hand M79.89 Congestive heart failure I50.9
== END 2024-03-25 12:21 | disposition home or self-care (01) ==
PROVIDERS: PCP Internal Medicine Endocrinology, Diabetes & Metabolism; Visit Provider Orthopaedic Surgery
DX: S52.501A Unspecified fracture of the lower end of right radius, initial encounter for closed fracture (principal); S52.611A Displaced fracture of right ulna styloid process, initial encounter for closed fracture; M79.89 Other specified soft tissue disorders; I50.9 Heart failure, unspecified
CPT/HCPCS: 99024

== ENCOUNTER 2024-03-31 09:15 | Outpatient (AMB) | payer MEDICARE, OTHER, SELFPAY ==
--- NOTE | 2024-03-31 09:16 | MHC.OFFVIS ---
Intake Visit Reasons: PO-RT distal radius, ulnar styloid fx on 02/23/24 Intake Note: Lonnie is a 84 yo male who presents today for a brace fitting s/p RT distal radius, ulnar styloid fx on 02/23/24. Patient reports his velcro wrist brace is not sticking properly. His right hand is visibly swollen. Patient walked in with his 2nd, 3rd, 4th, and 5th fingers wrapped with coband, he thought this is what Dr. Cagle told him to do. Patient removed coband himself. Allergies No Known Allergies [No Known Allergies*] Allergy (Verified 03/31/24 09:20) Medication List - Last Reconciled 03/31/24 by Monalisa Dyer PA-C amoxicillin-pot clavulanate 875-125 mg 1 tab PO Q12H furosemide 40 mg PO DAILY lorazepam 1 mg PO DAILY PRN spironolactone 50 mg PO DAILY HPI HPI PO-RT distal radius, ulnar styloid fx on 02/23/24: Details: 84-year-old male who returns to the office today for a follow-up of right wrist fracture, 02/23/24. He presents today for a brace fitting as he reports his Velcro wrist brace is not sticking properly. He also states he has swelling in his right hand. He walked in with his 2nd, 3rd, 4th and 5th finger wrapped with coband. [facility] Medical History (Updated 02/26/24 @ 09:52 by Dangelo Pandya) Congestive heart failure History of colon cancer Post laminectomy syndrome Mononeuropathy Trochanteric bursitis Proximal humerus fracture Surgical History History of left hip replacement History of hernia surgery Social History Alcohol intake: current Alcohol intake frequency: holidays/special occasions only Current occupational status: retired Current occupation: right handed Review of Systems Const All systems reviewed & are unremarkable except as noted in HPI and below Physical Exam Extrem Other: Right wrist: Skin is intact. No evidence of fracture blister. He does have swelling in his finger residual from injury and likely his CHF. NVI. Assessment & Plan Assessment & Plan (1) Fracture of right distal radius: Code(s): S52.501A - Unspecified fracture of the lower end of right radius, initial encounter for closed fracture Category: Medical (2) Fracture of right ulnar styloid: Code(s): S52.611A - Displaced fracture of right ulna styloid process, initial encounter for closed fracture Category: Medical (3) Swelling of right hand: Code(s): M79.89 - Other specified soft tissue disorders Category: Medical Plan Brace was readjusted. I encouraged him not to place tape around his finger as it has been causing compression and swelling at the distal aspect of his finger. He does express understanding and he will follow-up as previously scheduled on April 22, sooner if needed. Patient Instructions: Scribed for Monalisa Dyer PA-C, by Shukri Donohue medical library assistant, on 03/31/2024 at 9:15 AM EST.? I, Monalisa Dyer PA-C, have personally reviewed and agree with the information entered by the scribe. Coding Level of Care Code Global (72538) Diagnoses Fracture of right distal radius S52.501A Fracture of right ulnar styloid S52.611A Swelling of right hand M79.89
== END 2024-03-31 09:21 | disposition home or self-care (01) ==
LOC: HO.HOS 09:15
PROVIDERS: PCP Internal Medicine Endocrinology, Diabetes & Metabolism; Visit Provider Physician Assistant
DX: S52.501A Unspecified fracture of the lower end of right radius, initial encounter for closed fracture (principal); S52.611A Displaced fracture of right ulna styloid process, initial encounter for closed fracture; M79.89 Other specified soft tissue disorders
CPT/HCPCS: 99024

== ENCOUNTER → 2024-03-31 09:15 | Outpatient (BNVA) | payer MEDICARE, OTHER, SELFPAY | PROVIDERS: PCP Internal Medicine Endocrinology, Diabetes & Metabolism; Visit Provider Physician Assistant | DX: S52.501A Unspecified fracture of the lower end of right radius, initial encounter for closed fracture (principal); S52.611A Displaced fracture of right ulna styloid process, initial encounter for closed fracture; X58.XXXA Exposure to other specified factors, initial encounter; Y93.9 Activity, unspecified; Y92.9 Unspecified place or not applicable; Y99.9 Unspecified external cause status; M79.89 Other specified soft tissue disorders | CPT/HCPCS: 99212 ==

== ENCOUNTER 2024-04-29 09:59 | Outpatient (AMB) | payer MEDICARE, MEDICAID, SELFPAY ==
--- OUTSIDE RECORDS SUMMARY | 2024-04-29 10:01 | XMS_ITS | Continuity of Care Document ---
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 Onset: 09/2021 Osteoarthritis Amadeo Paulino M.D. Onset: 09/2021 Hypothyroidism Amadeo Paulino M.D. Onset: 09/2021 History of malignant neoplasm of colon Amadeo farah M.D. Onset: 12/09/2021 History of partial resection of colon Amadeo toth M.D. Onset: 12/09/2021 Edema of lower extremity Amadeo Paulino M.D. O nset: 07/31/2022 Dyspnea Amadeo Paulino M.D. Onset: Chronic obstructive lung disease Amadeo Paulino M.D. Onset: 12/26/2022 Edema Amadeo Paulino M.D. Onset: Chronic diastolic heart failure Amadeo Paulino M.D. Onset: 03/21/2023 Peripheral venous insufficiency Amadeo Paulino M.D. Onset: 03/21/2023 Benign prostatic hyperplasia Ons et: Erectile dysfunction Onset: Social History Type Date Description Comments Sex Unknown Lives With Girlfriend ETOH Use Occasionally consumes alcoho l Allergies and adverse reactions Description No Known Drug Allergies Medications Active Medications SIG Qnty Indications Order ing Provider Date [id number] Chewtabs Ba lexy Paulino M.D. 07/31/2022 Triamcinolone Acetonide0.1% Cream apply twice a day 30gm Amadeo toth M.D. 07/31/2022 Ksuwgbpinzdmuc90eq Tablets 1 tab by mouth qam 90talexie Paulino M.D. 07/31/2022 Sildenafil Uyuxizi646ct Tablets Take 1 Tablet By Mouth Once Daily 1 Hour Before Sexual Activity as Needed. 12talexie Yusuf M.D. 06/12/2022 Vwwayivzwssg68pd Capsules take 1 capsule by mouth every 6 hours as needed for gout flare-up 30corey Yusuf M.D. 05/17/2022 Upsvnctnhm30qe Tablets Take 1 Tablet By Mouth Every Day as Directed 90talexie Paulino M.D. 04/21/2022 Tamsulosin HCL0.4mg Capsules Take One Capsule By Mouth Every Night steven Paulino M.D. 12/09/2021 Rbegdhggg2fh Tablets 1 tab by mouth every day as needed 30talexie Samuels M.D. History Medications Dicloxacillin [id number] Capsules Take 1 tablet every 6 hours for 7 days 30corey Samuels M.D. 11/22/2023 - 12/12/2023 Medications Administered in Office Medication SIG Qnty Indications Ordering Provider Date Inject/Drain Arthrocentesis Major Joint/Bursa/Ganglion CystInjection Amadeo Paulino M.D. 09/03 Vital Signs Date Vital Result Comment 03/25/2024 8:44am BP Systolic 142 mmHg BP Diastolic 50 mmHg Heart Rate 61 /min Height 73 inches 6'1 Weight 237.00 lb BMI (Body Mass Index) 31.3 kg/m2 Results Test Acquired Date Facility Test Result H/L Range Note Electrolyte Panel 12/20/2023 [facility] Sodium 130 mmol/L Low 134-144 Potassium 4.5 mmol/L 3.5-5.2 Chloride 95 mmol/L Low 96-106 Carbon Dioxide, Total 22 mmol/L 20-29 Comp. Metabolic Panel (14) 10/12/2023 [facility] Glucose 84 mg/dL 70-99 BUN 11 mg/dL 8-27 Creatinine 0.96 mg/dL 0.76-1. 27 eGFR 79 mL/min/1.7 3 >59 BUN/Creatinine Ratio 11 10-24 Sodium 127 mmol/L Low 134-144 Potassium 4.6 mmol/L 3.5-5.2 Chloride 92 mmol/L Low 96-106 Carbon Dioxide, Total 21 mmol/L 20-29 Calcium 9.3 mg/dL 8.6-10. 2 Protein, Total 6.7 g/dL 6.0-8.5 Albumin 4.4 g/dL 3.7-4.7 Globulin, Total 2.3 g/dL 1.5-4.5 A/G Ratio 1.9 1.2-2.2 Bilirubin, Total 0.7 mg/dL 0.0-1.2 Alkaline Phosphatase 98 IU/L 44-121 Ast (Sgot) 21 IU/L 0-40 Alt (SGPT) 10 IU/L 0-44 Laboratory test finding 10/12/2023 [facility] Ferritin 303 ng/mL 30-400 CBC With Differential/Nicholas telet 10/12/2023 [facility] WBC 4.0 x10E3/uL 3.4-10. 8 RBC 3.91 x10E6/uL Low 4.14-5. 80 Hemoglobin 12.9 g/dL Low 13.0-17 .7 Hematocrit 38.0 % 37.5-51 .0 MCV 97 fL 79-97 MCH 33.0 pg 26.6-33 .0 MCHC 33.9 g/dL 31.5-35 .7 RDW 12.5 % 11.6-15 .4 Platelets 182 x10E3/uL 150-450 Neutrophils 64 % Not Estab. Lymphs 22 % Not Estab. Monocytes 10 % Not Estab. Eos 3 % Not Estab. Basos 1 % Not Estab. Immature Cells TNP Neutrophils (Absolute) 2.6 x10E3/uL 1.4-7.0 Lymphs (Absolute) 0.9 x10E3/uL 0.7-3.1 Monocytes(Absol [place]) 0.4 x10E3/uL 0.1-0.9 Eos (Absolute) 0.1 x10E3/uL 0.0-0.4 Baso (Absolute) 0.0 x10E3/uL 0.0-0.2 Immature Granulocytes 0 % Not Estab. Immature Grans (Abs) 0.0 x10E3/uL 0.0-0.1 NRBC TNP Hematology Comments: [facility] Laboratory test finding 10/12/2023 [facility] TSH Rfx on Abnormal to Free T4 4.360 uIU/mL 0.450-4 .500 Complete Abc With Diff 11/24/2022 [facility] WBC 5.4 K/MM3 (4.0-11 .0) RBC 3.88 M/MM3 Low (4.70-6 .10) HGB 13.1 GM/DL Low (13.7-1 7.1) HCT 38.6 % Low (40.5-5 0.0) MCV 99.5 FL High (80.0-9 4.0) MCH 33.8 pg (27.0-3 4.0) MCHC 33.9 g/dL (33.0-3 7.0) PLT 169 K/MM3 (150-46 0) RDW-SD 50.5 FL High (<47.0) MPV 10.3 FL (9.4-12 .4) Automated NRBC 0.0 #/100WBC'S Abs. NRBC 0.0 K/MM3 Neut # 3.5 K/MM3 (1.3-7. 0) Lymph # 0.9 K/MM3 (0.8-3. 1) [place]# 0.7 K/MM3 (0.4-1. 3) Eo # 0.2 K/MM3 (0.0-0. 4) Baso # 0.1 K/MM3 (0.0-0. 1) Abs. Imm Gran 0.1 K/MM3 Neut 64.0 % (44-76) Lymph 16.9 % (15-43) Monocyte 12.4 % High (4.5-10 .5) Eo 4.1 % (0-6) Baso 0.9 % (0-2) Imm Gran 1.7 % Complete Abc With Diff 09/28/2022 [facility] WBC 5.1 K/MM3 (4.0-11 .0) RBC 4.20 M/MM3 Low (4.70-6 .10) HGB 13.5 GM/DL Low (13.7-1 7.1) HCT 41.2 % (40.5-5 0.0) MCV 98.1 FL High (80.0-9 4.0) MCH 32.1 pg (27.0-3 4.0) MCHC 32.8 g/dL Low (33.0-3 7.0) PLT 214 K/MM3 (150-46 0) RDW-SD 45.4 FL (<47.0) MPV 10.1 FL (9.4-12 .4) Automated NRBC 0.0 #/100WBC'S Abs. NRBC 0.0 K/MM3 Neut # 3.1 K/MM3 (1.3-7. 0) Lymph # 1.2 K/MM3 (0.8-3. 1) [place]# 0.6 K/MM3 (0.4-1. 3) Eo # 0.2 K/MM3 (0.0-0. 4) Baso # 0.0 K/MM3 (0.0-0. 1) Abs. Imm Gran 0.0 K/MM3 Neut 60.0 % (44-76) Lymph 23.8 % (15-43) Monocyte 11.5 % High (4.5-10 .5) Eo 3.7 % (0-6) Baso 0.8 % (0-2) Imm Gran 0.2 % Laboratory test finding 09/28/2022 [facility] Ferritin 245 NG/ML (16-294 ) Comprehensive Metabolic Panl 09/28/2022 [facility] Glucose 106 mg/dL High (70-99) BUN 17 mg/dL (8-23) Creatinine 1.0 mg/dL (0.7-1. 2) Sodium 136 mmol/L (133-14 5) Potassium 4.4 mmol/L (3.6-5. 2) Chloride 103 mmol/L (98-107 ) Bicarbonate 24 mmol/L (22-29) Anion Gap 9 (4-17) Albumin 4.1 GM/DL (3.4-4. 8) Calcium 9.5 mg/dL (8.6-10 .5) Bilirubin,Total 0.6 mg/dL (0-1.2 ) Total Protein 6.6 GM/DL (6.2-8. 2) Ag Ratio 1.6 Ast 16 U/L (0-40) Alk Phos 106 U/L (40-129 ) Alt 9 U/L (0-41) Estimated GFR Creatinine 75 ML/MIN/1.7 3M2 1 Laboratory test finding 09/28/2022 [facility] TSH 4.80 uIU/mL High (0.4-4. 2) Urinalysis Complete 07/31/2022 [facility] Appear/Color LIGHT YELLOW 2 SP. [place] 1.013 (1.002- 1.030) Urine PH 6.5 (5.0-8. 0) Urine Albumin TRACE Abnormal (Neg) Urine Glucose NEGATIVE (Neg) Urine Ketones NEGATIVE (Neg) Urine Bilirubin NEGATIVE (Neg) Urine Hemoglobin NEGATIVE (Neg) Urine Nitrite NEGATIVE (Neg) Urine Leukocyte 3+ Abnormal (Neg) Urobilinogen NORMAL mg/dL (Norm) Urine WBCs 64 /HPF High (0-5) Urine RBCs 2 /HPF (0-3) Bacteria SLIGHT HPF Abnormal (Neg) Squamous Epith <1 /HPF (0-8) Hyaline Cast 1 LPF (0-2) Complete Abc With Diff 07/31/2022 [facility] WBC 6.3 K/MM3 (4.0-11 .0) RBC 3.90 M/MM3 Low (4.70-6 .10) HGB 12.9 GM/DL Low (13.7-1 7.1) HCT 39.6 % Low (40.5-5 0.0) MCV 101.5 FL High (80.0-9 4.0) MCH 33.1 pg (27.0-3 4.0) MCHC 32.6 g/dL Low (33.0-3 7.0) PLT 197 K/MM3 (150-46 0) RDW-SD 46.8 FL (<47.0) MPV 10.0 FL (9.4-12 .4) Automated NRBC 0.0 #/100WBC'S Abs. NRBC 0.0 K/MM3 Neut # 4.2 K/MM3 (1.3-7. 0) Lymph # 1.1 K/MM3 (0.8-3. 1) [place]# 0.7 K/MM3 (0.4-1. 3) Eo # 0.2 K/MM3 (0.0-0. 4) Baso # 0.1 K/MM3 (0.0-0. 1) Abs. Imm Gran 0.0 K/MM3 Neut 66.3 % (44-76) Lymph 18.0 % (15-43) Monocyte 11.1 % High (4.5-10 .5) Eo 3.5 % (0-6) Baso 0.8 % (0-2) Imm Gran 0.3 % Comprehensive Metabolic Panl 07/31/2022 [facility] Glucose 99 mg/dL (70-99) BUN 18 mg/dL (8-23) Creatinine 1.3 mg/dL High (0.7-1. 2) Sodium 134 mmol/L (133-14 5) Potassium 4.3 mmol/L (3.6-5. 2) Chloride 97 mmol/L Low (98-107 ) Bicarbonate 30 mmol/L High (22-29) Anion Gap 7 (4-17) Albumin 4.3 GM/DL (3.4-4. 8) Calcium 9.6 mg/dL (8.6-10 .5) Bilirubin,Total 0.7 mg/dL (0-1.2 ) Total Protein 6.6 GM/DL (6.2-8. 2) Ag Ratio 1.9 Ast 19 U/L (0-40) Alk Phos 82 U/L (40-129 ) Alt 10 U/L (0-41) Estimated GFR Creatinine 58 ML/MIN/1.7 3M2 3 Laboratory test finding 07/31/2022 [facility] TSH With Reflex To FT4 4.19 uIU/mL (0.4-4. 2) Free T4 1.12 ng/dL (0.70-1 .80) Laboratory test finding 02/06/2022 [facility] TSH With Reflex To FT4 6.22 uIU/mL High (0.4-4. 2) Vitamin B12 469 pg/mL (232-12 45) Free T4 1.25 ng/dL (0.70-1 .80) 1 Creatinine based est imated glomerular filtration (eGFR) in adults is calculated using the National [employer] recommended 202 CKD-EPI equation. Estimates GFR from serum creatinine, age and sex. 2 CLEAR 3 Creatinine based est imated glomerular filtration (eGFR) in adults is calculated using the National [employer] recommended 202 CKD-EPI equation. Estimates GFR from serum creatinine, age and sex. Procedures Date Code Description Status 09/04/2023 12194 Inject/Drain Art hrocentesis Major Joint/Bursa/Ganglion Cyst Completed 08/31/2023 NSHOWOFF No Show Office Visit Complet ed Medical Devices Description No Information Available Encounters Type Date Location Provider Dx Diagnosis Office Visit 04/08/2024 12:57p Main Office LUCINDA Floyd J44.9 Chronic obstr uctive pulmonary disease, unspecified I50.32 Chronic diastolic (c ongestive) heart failure Assessments Date Code Description Provider 04/08/2024 J44.9 Chronic obstructive lung dis ease LUCINDA Floyd 04/08/2024 I50.32 Chronic diastolic heart fail ure LUCINDA Floyd Plan of Treatment Future Appointment(s):* 07/14/2024 8:45 am - LUCINDA Floyd at Main Office 03/25/2024 - LUCINDA Floyd* J44.9 Chronic obstructive lung disease * I50.32 Chronic diastolic heart failure * I87.2 Peripheral venous insufficiency * R60.9 Edema * Z85.038 History of malignant neoplasm of colon Functional Status Description No Information Available Mental Status Description No Information Available Referrals Refer to Reason for Referral Status Appt [facility]rology DIFFICULTY URINATING Closed 10/16/[address] [place], [place] [id number] [phone] [facility] PHYSICAL TH ERAPY FOR HIS SHOULDERS [address] [place] [phone] FAX [phone] Closed 05/17/2023 [address] [place] [address] [phone] [facility] SEVERE EPISODES OF BACK PAIN DEGENERATIVE ARTHRITIS Closed 04/09/2023 [address] [place] [address] [phone] [facility] Pulmonary PULMONARY FUNCTION TESTS Closed 12/18/2022 [address] [place], [place] [id number] [phone]
--- NOTE | 2024-04-29 10:09 | A.OFFVIS_ITS ---
Vital Signs 04/29/24 10:10 Height 6 ft 1 in Weight 250 lb BMI 33.0 Intake Visit Reasons: RT distal radius, ulnar styloid w/o xray-ROM check Intake Note: Lonnie 84 yr old male presents today for his follow up visit of his right distal radius, ulnar styloid-ROM check. Patient states he is doing better. He is attending O.T 3x a week and comes out of his brace to work on his ROM. Allergies No Known Allergies [No Known Allergies*] Allergy (Verified 04/29/24 10:17) [facility] Medical History (Updated 02/26/24 @ 09:52 by Dangelo Pandya) Congestive heart failure History of colon cancer Post laminectomy syndrome Mononeuropathy Trochanteric bursitis Proximal humerus fracture Surgical History History of left hip replacement History of hernia surgery Social History Alcohol intake: current Alcohol intake frequency: holidays/special occasions only Current occupational status: retired Current occupation: right handed Physical Exam Vital Signs: BMI result Body Mass Index 33.0 Extrem Other: The patient was alert oriented and in no acute distress His swelling in his right hand is much improved. He can now bring his fingertips to a weak fist and back into extension which is a significant improvement. He has got supination of about 45 degrees and pronation of about 65 degrees. He is still pretty stiff with regards to wrist flexion and extension. No tenderness at the fracture site. Radiographs: 3 views of the right wrist from 03/25/2024 were again reviewed by me today.. They show a right comminuted distal radius fracture, intra-articular with a large radial styloid piece & lunar facet piece. The lunate facet fragment appears slightly depressed. There is also an ulnar styloid and nondisplaced ulnar head fracture. He has ~3 degrees of dorsal tilt on the lateral view, with overall satisfactory fracture alignment with some evidence of interval bony heal ing Assessment & Plan Assessment & Plan (1) Fracture of right distal radius: Code(s): S52.501A - Unspecified fracture of the lower end of right radius, initial encounter for closed fracture Category: Medical Plan Assessment & Plan: 1. Right distal radius fracture, comminuted & intra-articular S/P fall, DOI: 02/23/24 Managed with splinting and casting. 2. Right ulnar styloid fracture, S/P fall, DOI: 02/23/24 3. Right wrist volar fracture blisters, secondary to swelling This is all resolved nail. I educated him about these conditions He appears to be doing so much better now. He is very happy with the work he is doing with OT hand therapy and would like to have a few more visits. I have put in a new consult to OT hand therapy to see if they could possibly see him for a few more visits to work on wrist range of motion. At this point he may follow up p.r.n. Orders: Orders OT Evaluation and Treatment Today S52.501A - Unspecified fracture of the lower end of right radius, initial encounter for closed fracture Coding Level of Care Code Global (90420) Diagnoses Fracture of right distal radius S52.501A
[2024-04-29 10:10] VITALS: BMI 33.0
== END 2024-04-29 10:39 | disposition home or self-care (01) ==
LOC: HO.HOS 09:59
PROVIDERS: PCP Internal Medicine Endocrinology, Diabetes & Metabolism; Visit Provider Orthopaedic Surgery
DX: S52.501A Unspecified fracture of the lower end of right radius, initial encounter for closed fracture (principal)
CPT/HCPCS: 99024

== ENCOUNTER → 2024-04-29 09:59 | Outpatient (BNVA) | payer MEDICARE, MEDICAID, SELFPAY | PROVIDERS: PCP Internal Medicine Endocrinology, Diabetes & Metabolism; Visit Provider Orthopaedic Surgery | DX: S52.501D Unspecified fracture of the lower end of right radius, subsequent encounter for closed fracture with routine healing (principal) | CPT/HCPCS: 99212 ==

== ENCOUNTER 2024-06-09 09:23 | Outpatient (RCR) | payer MEDICARE, OTHER, SELFPAY ==
--- NOTE | 2024-03-13 11:42 | MHC.OT.EP ---
[address] [phone] Occupational Therapy Plan of Care Patient Name: Lonnie Morales Date of Evaluation: 03/13/24 Diagnosis: R DRF and ulnar styloid fx Pain Location: R wrist and hand Pain Score: 5 Pain Scale Used: Numeric (0 - 10) Aggravating Factors: movement Alleviating Factors: resting ; tylenol helps sometimes Assessment: Pt is an 84 yr. old R hand dominant male who fractured his R Distal radius and ulnar styloid when he fell mistaking a step. His partner Josefa brought him to the ED dept following the fall and he where he was placed in a cast; pt reports having a follow up at [facility] and being placed in a neoprene splint due to the cast being too tight and uncomfortable. Pt has been referred to skilled OT therapy to increase ROM, and functional use of his R hand. Pt is R hand dominant and presents today in a neoprene splint issued by [facility]. Pt is 2.5 weeks post injury and is NOT to remove the splint at this time. We are currently treating the pt. for edema and DIGIT ROM ONLY. Frequency and Duration: The patient will be seen 2xs a week for 8 weeks Short Term Goals: Pt will adhere to orthoses wear Pt will decrease R transmetacarpals 20 22.5 cm Pt will oppose his R thumb (distal tip) to the distal tip of his RF Pt will make a composite fist Medical Transcriptionist Goals: Pt will have 25 of pain free wrist extension Pt will have 40 of pain free wrist flexion pt will report 1/10 pain Treatment Plan: Therapeutic Exercise Therapeutic Activity Home Exercise Program Splinting Neuro Re-ed Patient Education Desensitization/Sensory Re-ed Edema Control ADL Training Ultrasound NMES Iontophoresis Paraffin Fluidotherapy MHP Cold Packs Joint Mobilization Soft Tissue Mobilization Kinesiotaping Other (see comments) Electronically Signed By: Radha Osborne OTR/L Please Sign and return to therapist. Thank you once again for your referral.
--- NOTE | 2024-05-23 13:24 | MHC.OT.OP ---
[address] [phone] F: [phone] Occupational Therapy Progress Note Patient Name: Lonnie Morales Diagnosis: R DRF and ulnar styloid fx Date of Surgery: Date of Evaluation: 03/13/24 Treatments to Date: 11 Cancellations to Date: No Shows to Date: Subjective: You have a lot of gadgets. Pain Score: 0 Pain Location: IPs R hand Objective Measures: ROM measurements edema measurements pain= 0/10 Status: Progressing Assessment: Transmetacarpals: 23 cm L:21 cm IF : 9.5 cm L:7cm MF 9 cm L: 6.5cm RF 8 cm L: 6 cm SF 7.5 cm L: 5.5 cm elbow : 27.5 Short Term Goals: Pt will adhere to orthoses wear- MET weaning wearing orthosis Pt will decrease R transmetacarpals 20 22.5 cm (22cm) Pt will oppose his R thumb (distal tip) to the distal tip of his RF - MET (can oppose to 5th digit) Pt will make a composite fist - MET Satellite Tv Technician Goals: Pt will have 25 of pain free wrist extension - 43* Pt will have 40 of pain free wrist flexion -MET 47* pt will report 1/10 pain - MET 0/10 Patient will be (I) with HEP Frequency and Duration: The patient will be seen 2xs a week for 8 weeks Treatment Plan: Therapeutic Exercise Therapeutic Activity Home Exercise Program Splinting Patient Education Edema Control ADL Training Ultrasound NMES Iontophoresis Paraffin Fluidotherapy MHP Cold Packs Joint Mobilization Soft Tissue Mobilization Kinesiotaping Other (see comments) Patient was seen for skilled OT progress note. At this time patient is achieving his STGs and LTGs. He reports 0/10 pain and is slowly increasing his wrist ROM. He is tolerating gentle strengthening. It has been observed patient demonstrates poor carryover of technique requiring mod verbal cues to perform multi step tasks. Patient requires continued occupational therapy in order to continue increasing wrist ROM and increase strength in order for patient to achieve his PLOF. Electronically Signed By: Nayely Mathis OTR/L, CLT Reviewed/agree with student documentation: N/A Therapist:
== END 2024-06-09 09:54 | disposition home or self-care (01) ==
LOC: HO.OT 09:23
PROVIDERS: PCP Internal Medicine Endocrinology, Diabetes & Metabolism; Visit Provider Orthopaedic Surgery
DX: M79.89 Other specified soft tissue disorders (principal); I50.9 Heart failure, unspecified; S52.611A Displaced fracture of right ulna styloid process, initial encounter for closed fracture
CPT/HCPCS: 97035; 97110; 97140; 97166; 97530

== ENCOUNTER 2025-02-02 09:31 | Outpatient (AMB) | payer MEDICARE, MEDICAID, SELFPAY ==
--- NOTE | 2025-02-02 09:42 | MHC.OFFVIS ---
Intake Visit Reasons: Inj-Left hip injection-last 12/21/22 Intake Note: Lonnie is an 85 year old male who presents today for a repeat injection for his Left Hip. Last injection done 12/21/24 Allergies No Known Allergies (No Known Allergies*) Allergy (Verified 04/29/24 10:17) HPI HPI Inj-Left hip injection-last 12/21/22: Details: Lonnie is an 85 year old male who presents today for a repeat injection for his Left Hip. Last injection done 12/21/22. He has pain in the greater trochanter with stairs and standing from a seated position. Otherwise no complaints. [facility] Medical History (Updated 02/26/24 @ 09:52 by Dangelo Pandya) Congestive heart failure History of colon cancer Post laminectomy syndrome Mononeuropathy Trochanteric bursitis Proximal humerus fracture Surgical History History of left hip replacement History of hernia surgery Social History Alcohol intake: current Alcohol intake frequency: holidays/special occasions only Current occupational status: retired Current occupation: right handed Physical Exam Extrem Other: Tenderness to palpation left greater trochanter. Well-healed incision. No pain with hip range of motion. Office Procedures Joint Inj/Aspir; Non-Pain Clin Joint Injection/Drain Details: Injected 1 mL of Decadron and 3 mL 1% lidocaine and 3 mL of 0.25% Marcaine. Site was prepped using aseptic technique. Patient tolerated the procedure well. None Shoulders, Hips, Knees, Hip Injection Large Joint : Left Hip (Left greater trochanter) Coding Procedure code (CPT) selection complete Assessment & Plan Assessment & Plan (1) Trochanteric bursitis, left hip: Code(s): M70.62 - Trochanteric bursitis, left hip Category: Medical Plan: Lonnie is an 85-year-old gentleman with left greater trochanteric bursitis. I injected his greater trochanter. This is typically helpful for him for up to a year. Come back if he would like additional injections. Coding Level of Care Code Est Pt Level 3 (90059) Diagnoses Trochanteric bursitis, left hip M70.62 CPT Codes Shoulders, Hips, Knees, - Hip Injection Large Joint : Left Hip ([id number])
--- OUTSIDE RECORDS SUMMARY | 2025-02-02 10:21 | XMS_ITS | Clinical Summary ---
Author Organization [facility] ity Address [address] [place] [address] Care Team Providers Care Fork Lift Mechanic Name Role Phone Amadeo Paulino MD Primary Care Provider Social History Tobacco Use Types Packs/Day Years Used Date Smoking Tobacco: Never Assessed Sex and Gender Information Value Date Recorded Sex Assigned at Not on file Legal Sex Male 5:02 PM EST Gender Identity Not on file Sexual Orientation Not on file Plan of Treatment Health Maintenance Due Date Last Done Comments DTaP,Tdap,and Td Vaccines (1 - Tdap) 02/01/1960 Pneumococcal Vaccine: 50+ Ye ars (1 of 1 - PCV) 1991 Zoster Vaccines (1 of 2) 1991 RSV Immunization Adult Patie nts (1 - 1-dose 75+ series) 02/01/2016 Cholesterol Screening (Lipid Panel) 04/05/2022 Falls Risk Assessment 04/05/2022 Social Influencers of Health Screening 04/05/2022 Depression Screening 05/07/2024 COVID-19 Vaccine (1 - 2023-2 5 season) 2025 Influenza Vaccine (#1) 2025 HIB Vaccines Aged Out No longer eligi ble based on patient's age to complete this topic HPV Vaccines Aged Out No longer eligi ble based on patient's age to complete this topic Hepatitis A Vaccines Aged Out No long er eligible based on patient's age to complete this topic Hepatitis B Vaccines Aged Out No long er eligible based on patient's age to complete this topic IPV Vaccines Aged Out No longer eligi ble based on patient's age to complete this topic MMR Vaccines Aged Out No longer eligi ble based on patient's age to complete this topic Meningococcal ACWY Vaccine Aged Out N o longer eligible based on patient's age to complete this topic Meningococcal B Vaccine Aged Out No l onger eligible based on patient's age to complete this topic RSV Immunization Patients Un diamond 20 months Aged Out No longer eligible b ased on patient's age to complete this topic Varicella Vaccines Aged Out No longer eligible based on patient's age to complete this topic Advance Directives Documents on File Type Date Recorded 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
--- OUTSIDE RECORDS SUMMARY | 2025-02-02 10:22 | XMS_ITS | Continuity of Care Document ---
Author Organization [facility] [address] [place] [address] Phone [phone] Care Team Providers Care Scratch Finisher Name Role Phone Krissy Dove CNP Care Team Informatio n Director Global Market Research [phone] Problems Active Problems Provider Date Gout Amadeo [...] Social History Type Date Description Comments Sex Male Sex Unknown Lives With Girlfriend ETOH Use Occasionally consumes alcoho l Allergies and adverse reactions Description No Known Drug Allergies Medications Active Medications SIG Qnty Indications Order ing Provider Date [id number] Chewtabs Ba lexy Paulino M.D. 07/31/2022 Triamcinolone Acetonide0.1% Cream apply twice a day 30gm Amadeo toth M.D. 07/31/2022 [id number] Tablets 1 tab by mouth every morning 90tabs Rima Samuels M.D. 07/31/2022 Sildenafil [id number] Tablets Take 1 Tablet By Mouth Once Daily 1 Hour Before Sexual Activity as Needed. 12tabs Rima Samuels M.D. 06/12/2022 [id number] Tablets Take 1 Tablet By Mouth Every Day as Directed 90tabs Amadeo Paulino M.D. 04/21/2022 Tamsulosin HCL0.4mg Capsules Take One Capsule By Mouth Every Night 90caps Amadeo Paulino M.D. 12/09/2021 Bvmynsaky3ne Tablets 1 tab by mouth every day as needed 30tabs F41.9 Krissy Dove, SUPERVISOR MOTOR VEHICLE ASSEMBLY Medications Administered in Office Medication SIG Qnty Indications Ordering Provider Date Inject/Drain Arthrocentesis Major Joint/Bursa/Ganglion CystInjection Amadeo Paulino M.D. 09/03 Vital Signs Date Vital Result Comment 09/26/2024 9:15am BP Systolic 132 mmHg BP Diastolic 80 mmHg Heart Rate 71 /min Height 73 inches 6'1 Weight 232.00 lb BMI (Body Mass Index) 30.6 kg/m2 Results Test Acquired Date Facility Test Result H/L Range Note Homocyst(E)Ine, Plasma 09/26/2024 [facility] Homocyst(e)ine 17.2 umol/L 0.0-21.3 Transferrin Saturation 09/26/2024 [facility] Iron 37 g/dL Low 1 Transferrin Saturation 13 %Saturatio n Low 2 Transferrin 206 mg/dL 3 Methylmalonic Acid, Serum 09/26/2024 [facility] Methylmalonic Acid, Serum 333 nmol/L 0-378 Immunofixatin Serum 09/26/2024 [facility] Immunoglobulin G, Qn, Serum 1263 mg/dL 603-1613 Immunoglobulin A, Qn, Serum 425 mg/dL 61-437 Immunoglobulin M, Qn, Serum 50 mg/dL 15-143 Immunofixation Result, Serum See Comment: Abnormal 4 Ferritin 09/26/2024 [facility] Ferritin 206 ng/mL 30-400 Vitamin B12 09/26/2024 [facility] Vitamin B12 617 pg/mL 232-1245 Folate (Folic Acid), Serum 09/26/2024 [facility] Folate (Folic Acid), Serum 6.8 ng/mL >3.0 5 Iron And Tibc 09/26/2024 [facility] Iron Bind.Cap.(Tibc) 250 g/dL 250-450 Uibc 211 g/dL 111-343 Iron 39 g/dL 38-169 Iron Saturation 16 % 15-55 Basic Metabolic Panel (8) 09/26/2024 [facility] Glucose 85 mg/dL 70-99 BUN 14 mg/dL 8-27 Creatinine 1.03 mg/dL 0.76-1.27 eGFR 72 mL/min/1.7 3 >59 BUN/Creatinine Ratio 14 10-24 Sodium 132 mmol/L Low 134-144 Potassium 4.6 mmol/L 3.5-5.2 Chloride 99 mmol/L 96-106 Carbon Dioxide, Total 19 mmol/L Low 20-29 Calcium 9.2 mg/dL 8.6-10.2 CBC With Differential/Pl atelet 09/26/2024 [facility] WBC 4.1 x10E3/uL 3.4-10.8 RBC 3.63 x10E6/uL Low 4.14-5.80 Hemoglobin 12.0 g/dL Low 13.0-17.7 Hematocrit 35.8 % Low 37.5-51.0 MCV 99 fL High 79-97 MCH 33.1 pg High 26.6-33.0 MCHC 33.5 g/dL 31.5-35.7 RDW 12.4 % 11.6-15.4 Platelets 167 x10E3/uL 150-450 Neutrophils 62 % Not Estab. Lymphs 13 % Not Estab. Monocytes 13 % Not Estab. Eos 11 % Not Estab. Basos 1 % Not Estab. Immature Cells TNP Neutrophils (Absolute) 2.6 x10E3/uL 1.4-7.0 Lymphs (Absolute) 0.5 x10E3/uL Low 0.7-3.1 Monocytes(Absol u te) 0.5 x10E3/uL 0.1-0.9 Eos (Absolute) 0.5 x10E3/uL High 0.0-0.4 Baso (Absolute) 0.0 x10E3/uL 0.0-0.2 Immature Granulocytes 0 % Not Estab. Immature Grans (Abs) 0.0 x10E3/uL 0.0-0.1 NRBC TNP Hematology Comments: TNP Comp. Metabolic Panel (14) 07/14/2024 [facility] Glucose 92 mg/dL 70-99 BUN 17 mg/dL 8-27 Creatinine 0.95 mg/dL 0.76-1.27 eGFR 79 mL/min/1.7 3 >59 BUN/Creatinine Ratio 18 10-24 Sodium 135 mmol/L 134-144 Potassium 4.3 mmol/L 3.5-5.2 Chloride 99 mmol/L 96-106 Carbon Dioxide, Total 23 mmol/L 20-29 Calcium 9.0 mg/dL 8.6-10.2 Protein, Total 6.5 g/dL 6.0-8.5 Albumin 4.0 g/dL 3.7-4.7 Globulin, Total 2.5 g/dL 1.5-4.5 Bilirubin, Total 0.7 mg/dL 0.0-1 .2 Alkaline Phosphatase 101 IU/L 44-121 Ast (Sgot) 15 IU/L 0-40 Alt (SGPT) 6 IU/L 0-44 Urinalysis, Complete 07/14/2024 [facility] Specific [place] 1.014 1.005-1.0 30 pH 6.5 5.0-7.5 Urine-Color Yellow Yellow Appearance Clear Clear WBC Esterase Negative Negative Protein Negative Negative/ Trace Glucose Negative Negative Ketones Negative Negative Occult Blood Negative Negative Bilirubin Negative Negative Urobilinogen,Se m i-Qn 1.0 mg/dL 0.2-1.0 Nitrite, Urine Negative Negative Microscopic Examination See Comment: 6 Microscopic Examination See below: 7 WBC None seen /hpf 0 - 5 RBC None seen /hpf 0 - 2 Epithelial Cell s (non renal) 0-10 /hpf 0 - 10 Epithelial Cell s (renal) TNP Casts None seen /lpf None seen Cast Type TNP Crystals TNP Crystal Type TNP Mucus Threads TNP Bacteria None seen None seen/Few Yeast TNP Trichomonas TNP Comment TNP CBC With Differential/Pl atelet 07/14/2024 [facility] WBC 4.7 x10E3/uL 3.4-10.8 RBC 3.78 x10E6/uL Low 4.14-5.80 Hemoglobin 12.1 g/dL Low 13.0-17.7 Hematocrit 36.2 % Low 37.5-51.0 MCV 96 fL 79-97 MCH 32.0 pg 26.6-33.0 MCHC 33.4 g/dL 31.5-35.7 RDW 13.0 % 11.6-15.4 Platelets 203 x10E3/uL 150-450 Neutrophils 53 % Not Estab. Lymphs 28 % Not Estab. Monocytes 11 % Not Estab. Eos 7 % Not Estab. Basos 1 % Not Estab. Immature Cells TNP Neutrophils (Absolute) 2.5 x10E3/uL 1.4-7.0 Lymphs (Absolute) 1.3 x10E3/uL 0.7-3.1 Monocytes(Absol u te) 0.5 x10E3/uL 0.1-0.9 Eos (Absolute) 0.3 x10E3/uL 0.0-0.4 Baso (Absolute) 0.1 x10E3/uL 0.0-0.2 Immature Granulocytes 0 % Not Estab. Immature Grans (Abs) 0.0 x10E3/uL 0.0-0.1 NRBC TNP Hematology Comments: TNP Electrolyte Panel 12/20/2023 [facility] Sodium 130 mmol/L Low 134-144 Potassium 4.5 mmol/L 3.5-5.2 Chloride 95 mmol/L Low 96-106 Carbon Dioxide, Total 22 mmol/L 20-29 Ferritin 10/12/2023 [facility] Ferritin 303 ng/mL 30-400 TSH Rfx on Abnormal to Free T4 10/12/2023 [facility] TSH Rfx on Abnormal to Free T4 4.360 uIU/mL 0.450-4.5 00 CBC With Differential/Pl atelet 10/12/2023 [facility] WBC 4.0 x10E3/uL 3.4-10.8 RBC 3.91 x10E6/uL Low 4.14-5.80 Hemoglobin 12.9 g/dL Low 13.0-17.7 Hematocrit 38.0 % 37.5-51.0 MCV 97 fL 79-97 MCH 33.0 pg 26.6-33.0 MCHC 33.9 g/dL 31.5-35.7 RDW 12.5 % 11.6-15.4 Platelets 182 x10E3/uL 150-450 Neutrophils 64 % Not Estab. Lymphs 22 % Not Estab. Monocytes 10 % Not Estab. Eos 3 % Not Estab. Basos 1 % Not Estab. Immature Cells TNP Neutrophils (Absolute) 2.6 x10E3/uL 1.4-7.0 Lymphs (Absolute) 0.9 x10E3/uL 0.7-3.1 Monocytes(Absol u te) 0.4 x10E3/uL 0.1-0.9 Eos (Absolute) 0.1 x10E3/uL 0.0-0.4 Baso (Absolute) 0.0 x10E3/uL 0.0-0.2 Immature Granulocytes 0 % Not Estab. Immature Grans (Abs) 0.0 x10E3/uL 0.0-0.1 NRBC TNP Hematology Comments: TNP Comp. Metabolic Panel (14) 10/12/2023 [facility] Glucose 84 mg/dL 70-99 BUN 11 mg/dL 8-27 Creatinine 0.96 mg/dL 0.76-1.27 eGFR 79 mL/min/1.7 3 >59 BUN/Creatinine Ratio 11 10-24 Sodium 127 mmol/L Low 134-144 Potassium 4.6 mmol/L 3.5-5.2 Chloride 92 mmol/L Low 96-106 Carbon Dioxide, Total 21 mmol/L 20-29 Calcium 9.3 mg/dL 8.6-10.2 Protein, Total 6.7 g/dL 6.0-8.5 Albumin 4.4 g/dL 3.7-4.7 Globulin, Total 2.3 g/dL 1.5-4.5 A/G Ratio 1.9 1.2-2.2 Bilirubin, Total 0.7 mg/dL 0.0-1 .2 Alkaline Phosphatase 98 IU/L 44-121 Ast (Sgot) 21 IU/L 0-40 Alt (SGPT) 10 IU/L 0-44 Complete Abc With Diff 11/24/2022 [facility] WBC 5.4 K/MM3 (4.0-11.0 ) RBC 3.88 M/MM3 Low (4.70-6.1 0) HGB 13.1 GM/DL Low (13.7-17. 1) HCT 38.6 % Low (40.5-50. 0) MCV 99.5 FL High (80.0-94. 0) MCH 33.8 pg (27.0-34. 0) MCHC 33.9 g/dL (33.0-37. 0) PLT 169 K/MM3 (150-460) RDW-SD 50.5 FL High (<47.0) MPV 10.3 FL (9.4-12.4 ) Automated NRBC 0.0 #/100WBC'S Abs. NRBC 0.0 K/MM3 Neut # 3.5 K/MM3 (1.3-7.0) Lymph # 0.9 K/MM3 (0.8-3.1) [place]# 0.7 K/MM3 (0.4-1.3) Eo # 0.2 K/MM3 (0.0-0.4) Baso # 0.1 K/MM3 (0.0-0.1) Abs. Imm Gran 0.1 K/MM3 Neut 64.0 % (44-76) Lymph 16.9 % (15-43) Monocyte 12.4 % High (4.5-10.5 ) Eo 4.1 % (0-6) Baso 0.9 % (0-2) Imm Gran 1.7 % Complete Abc With Diff 09/28/2022 [facility] WBC 5.1 K/MM3 (4.0-11.0 ) RBC 4.20 M/MM3 Low (4.70-6.1 0) HGB 13.5 GM/DL Low (13.7-17. 1) HCT 41.2 % (40.5-50. 0) MCV 98.1 FL High (80.0-94. 0) MCH 32.1 pg (27.0-34. 0) MCHC 32.8 g/dL Low (33.0-37. 0) PLT 214 K/MM3 (150-460) RDW-SD 45.4 FL (<47.0) MPV 10.1 FL (9.4-12.4 ) Automated NRBC 0.0 #/100WBC'S Abs. NRBC 0.0 K/MM3 Neut # 3.1 K/MM3 (1.3-7.0) Lymph # 1.2 K/MM3 (0.8-3.1) [place]# 0.6 K/MM3 (0.4-1.3) Eo # 0.2 K/MM3 (0.0-0.4) Baso # 0.0 K/MM3 (0.0-0.1) Abs. Imm Gran 0.0 K/MM3 Neut 60.0 % (44-76) Lymph 23.8 % (15-43) Monocyte 11.5 % High (4.5-10.5 ) Eo 3.7 % (0-6) Baso 0.8 % (0-2) Imm Gran 0.2 % Ferritin 09/28/2022 [facility] Ferritin 245 NG/ML (16-294) Comprehensive Metabolic Panl 09/28/2022 [facility] Glucose 106 mg/dL High (70-99) BUN 17 mg/dL (8-23) Creatinine 1.0 mg/dL (0.7-1.2) Sodium 136 mmol/L (133-145) Potassium 4.4 mmol/L (3.6-5.2) Chloride 103 mmol/L (98-107) Bicarbonate 24 mmol/L (22-29) Anion Gap 9 (4-17) Albumin 4.1 GM/DL (3.4-4.8) Calcium 9.5 mg/dL (8.6-10.5 ) Bilirubin,Total 0.6 mg/dL (0-1.2 ) Total Protein 6.6 GM/DL (6.2-8.2 ) Ag Ratio 1.6 Ast 16 U/L (0-40) Alk Phos 106 U/L (40-129) Alt 9 U/L (0-41) Estimated GFR Creatinine 75 ML/MIN/1.7 3M2 8 TSH 09/28/2022 [facility] TSH 4.80 uIU/mL High (0.4-4.2) Urinalysis Complete 07/31/2022 [facility] Appear/Color LIGHT YELLOW 9 SP. [place] 1.013 (1.002-1. 030) Urine PH 6.5 (5.0-8.0) Urine Albumin TRACE Abnormal (Neg) Urine Glucose [...] LPF (0-2) Complete Abc With Diff 07/31/2022 [facility] WBC 6.3 K/MM3 (4.0-11.0 ) RBC 3.90 M/MM3 Low (4.70-6.1 0) HGB 12.9 GM/DL Low (13.7-17. 1) HCT 39.6 % Low (40.5-50. 0) MCV 101.5 FL High (80.0-94. 0) MCH 33.1 pg (27.0-34. 0) MCHC 32.6 g/dL Low (33.0-37. 0) PLT 197 K/MM3 (150-460) RDW-SD 46.8 FL (<47.0) MPV 10.0 FL (9.4-12.4 ) Automated NRBC 0.0 #/100WBC'S Abs. NRBC 0.0 K/MM3 Neut # 4.2 K/MM3 (1.3-7.0) Lymph # 1.1 K/MM3 (0.8-3.1) [place]# 0.7 K/MM3 (0.4-1.3) Eo # 0.2 K/MM3 (0.0-0.4) Baso # 0.1 K/MM3 (0.0-0.1) Abs. Imm Gran 0.0 K/MM3 Neut 66.3 % (44-76) Lymph 18.0 % (15-43) Monocyte 11.1 % High (4.5-10.5 ) Eo 3.5 % (0-6) Baso 0.8 % (0-2) Imm Gran 0.3 % Comprehensive Metabolic Panl 07/31/2022 [facility] Glucose 99 mg/dL (70-99) BUN 18 mg/dL (8-23) Creatinine 1.3 mg/dL High (0.7-1.2) Sodium 134 mmol/L (133-145) Potassium 4.3 mmol/L (3.6-5.2) Chloride 97 mmol/L Low (98-107) Bicarbonate 30 mmol/L High (22-29) Anion Gap 7 (4-17) Albumin 4.3 GM/DL (3.4-4.8) Calcium 9.6 mg/dL (8.6-10.5 ) Bilirubin,Total 0.7 mg/dL (0-1.2 ) Total Protein 6.6 GM/DL (6.2-8.2 ) Ag Ratio 1.9 Ast 19 U/L (0-40) Alk Phos 82 U/L (40-129) Alt 10 U/L (0-41) Estimated GFR Creatinine 58 ML/MIN/1.7 3M2 10 TSH With Reflex To FT4 07/31/2022 [facility] TSH With Reflex To FT4 4.19 uIU/mL (0.4-4.2) Free T4 07/31/2022 [facility] Free T4 1.12 ng/dL (0.70-1.8 0) TSH With Reflex To FT4 02/06/2022 [facility] TSH With Reflex To FT4 6.22 uIU/mL High (0.4-4.2) Vitamin B12 02/06/2022 [facility] Vitamin B12 469 pg/mL (232-1245 ) Free T4 02/06/2022 [facility] Free T4 1.25 ng/dL (0.70-1.8 0) 1 Reference Range: >=10y: 61 - 157 2 Reference Range: Children and Adults: 15 - 55 3 Reference Range: Children and Adults: 200 - 370 4 Immunofixation shows IgG monoclonal protein with kappa light chain specificity. PLEASE NOTE: Samples from patients receiving DARZALEX(R) (daratumumab) or SARCLISA(R)(isatuximab-[facility]) treatment can appear as an IgG kappa and mask a complete response (CR). If this patient is receiving these therapies, this ILIA assay interference can be removed by ordering test number [id number] Immunofixation, Daratumumab-Specific, Serum or [id number] Immunofixation, Isatuximab-Specific, Serum and submitting a new sample for testing or by calling the lab to add this test to the current sample. Monoclonal bands detected are faint. Suggest retesting in 4-6 months. 5 A serum folate zuleyma ntration of less than 3.1 ng/mL is considered to represent clinical deficiency. 6 Microscopic follows if indicated. 7 Microscopic was maria m cated and was performed. 8 Creatinine based est imated glomerular filtration (eGFR) in adults is calculated using the [employer] recommended 2020 CKD-EPI equation. Estimates GFR from serum creatinine, age and sex. 9 CLEAR 10 Creatinine based est imated glomerular filtration (eGFR) in adults is calculated using the [employer] recommended 2020 CKD-EPI equation. Estimates GFR from serum creatinine, age and sex. Procedures Date Code Description Status 09/04/2023 95268 Inject/Drain Art hrocentesis Major Joint/Bursa/Ganglion Cyst Completed 08/31/2023 NSHOWOFF No Show Office Visit Complet ed Medical Devices Description No Information Available Encounters Type Date Location Provider Dx Diagnosis Office Visit 01/09/2025 9:06a Main Office Krissy Dove CNP I50.32 Chronic diastolic (congestive) heart failure J44.9 Chronic obstructive pulmonary disease, unspecified Assessments Date Code Description Provider 01/09/2025 I50.32 Chronic diastolic heart fail ure Krissy Dove CNP 01/09/2025 J44.9 Chronic obstructive lung dis ease Krissy Dove CNP Plan of Treatment Future Appointment(s):* 02/03/2025 10:30 am - Krissy Dove CNP at Main Office 09/26/2024 - LUCINDA Floyd* I87.2 Peripheral venous insufficiency * Z85.038 History of malignant neoplasm of colon * Z90.49 History of partial resection of colon * N40.0 Benign prostatic hyperplasia without lower urinary tract symptoms * N52.9 Male erectile dysfunction, unspecified * M10.9 Gout, unspecified * D64.9 Anemia, unspecified * F41.9 Anxiety NOS Functional Status Description No Information Available Mental Status Description No Information Available Referrals Refer to Reason for Referral Status Appt Mike e [facility] Hematology And Oncology Monoclonal Gammopathy , Anemia Closed 10/09/2024 [address] [place] [address] [phone] [facility] Urology DIFFICULTY URINATING Closed 10/16/2023 [address] [place] [address] [phone] [facility] PHYSICAL TH ERAPY FOR HIS SHOULDERS [address] [place]EL [phone] FAX [phone] Closed 05/17/[address] Floor [address] [place] [address] [phone] [facility] 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
== END 2025-02-02 09:58 | disposition home or self-care (01) ==
LOC: HO.HOS 09:32
PROVIDERS: PCP Internal Medicine Endocrinology, Diabetes & Metabolism; Visit Provider Orthopaedic Surgery
DX: M70.62 Trochanteric bursitis, left hip (principal)
CPT/HCPCS: 20610

== ENCOUNTER → 2025-02-02 09:31 | Outpatient (BNVA) | payer MEDICARE, MEDICAID, SELFPAY | PROVIDERS: PCP Internal Medicine Endocrinology, Diabetes & Metabolism; Visit Provider Orthopaedic Surgery | DX: M70.62 Trochanteric bursitis, left hip (principal) | CPT/HCPCS: 20610; J0665; J1100; J2003 ==